=== PATIENT | female | born 1935 | race Caucasian/White ===

== ENCOUNTER 2016-11-26 09:27 | Emergency (ER) | payer MEDICARE ==
[2016-11-26] MEDS ORDERED: Sodium Chloride 0.9% 10 ML Syringe FLUSH PRN (10:21)
--- NOTE | 2016-11-26 10:27 | EDM.PDOC ---
ED HPI GENERAL MEDICAL PROBLEM - General Chief Complaint: Respiratory Problem Stated Complaint: HARD TIME BREATHING Time Seen by Provider: 11/26/16 10:14 Source of Information: Reports: Patient, RN Notes Reviewed History Limitations: Reports: No Limitations - History of Present Illness INITIAL COMMENTS - FREE TEXT/NARRATIVE: 81-year-old female presents emergency department day complaint of shortness of breath, she is a long term resident states his shortness of breath really began this morning she does have cough and sputum production she also admits to being ravioli with noisy respirations denies any chest pain or fevers, does have a significant past medical history of COPD, coronary artery disease and lung CA - Related Data Allergies Allergy/AdvReac Type Severity Reaction Status Date / Time allopurinol Allergy Severe Rash Verified 06/25/16 06:21 Penicillins Allergy Severe Anaphylactic Verified 06/25/16 06:21 Shock fentanyl Allergy Intermediate Cannot Verified 06/25/16 06:21 Remember levofloxacin [From Levaquin] Allergy Unknown Hives Verified 06/25/16 06:21 adhesive Allergy Rash Verified 06/25/16 06:21 lisinopril AdvReac Intermediate Cough Verified 06/25/16 06:21 Home Meds: Home Meds Levothyroxine Sodium [Synthroid] 75 mcg PO DAILY 02/27/13 [History] Acetaminophen [Tylenol] 650 mg PO Q4H PRN 11/21/13 [History] Aspirin [Low Dose Aspirin EC] 81 mg PO DAILY 11/21/13 [History] Ranitidine HCl [Zantac] 150 mg PO BEDTIME 03/07/14 [History] Morphine Sulfate [Morphine Sulfate ER] 30 mg PO TID 06/17/14 [History] Potassium Chloride 20 meq PO TID 06/17/14 [History] Albuterol [Proventil Neb Soln] 2.5 mg NEB QID 11/24/14 [History] Omeprazole 20 mg PO BEDTIME 11/24/14 [History] Sennosides [Senna] 17.2 mg PO BID 12/03/14 [History] Albuterol/Ipratropium [DuoNeb 3.0-0.5 MG/3 ML] 0.5 - 2.5 ml INH Q4H 05/01/15 [ History] Fluticasone/Salmeterol [Advair 250-50] 1 puff INH BID 05/01/15 [History] Furosemide [Lasix] 20 mg PO DAILY 01/09/16 [History] Isosorbide Mononitrate [Imdur] 60 mg PO DAILY 01/09/16 [History] Carvedilol [Carvedilol] 6.25 mg PO BID 11/26/16 [History] Fluticasone/Salmeterol [Advair 250-50 Diskus] 1 each IH BID 11/26/16 [History] Melatonin 3 mg PO BEDTIME 11/26/16 [History] Nystatin [Nystatin] 1 appful TOP BID PRN 11/26/16 [History] Prochlorperazine Maleate [Compazine] 10 mg PO Q6HR PRN 11/26/16 [History] guaiFENesin/Codeine Phosphate [Guaifenesin AC Cough Syrup] 10 ml PO Q4HR PRN 06/14 [History] oxyCODONE [oxyCODONE] 10 mg PO Q4HR PRN 11/26/16 [History] Past Medical History HEENT History: Reports: Cataract Cardiovascular History: Reports: Bypass, CAD, Heart Failure, High Cholesterol, VA, SOB on Exertion Respiratory History: Reports: SOB Gastrointestinal History: Reports: Chronic Constipation, GERD Other Genitourinary History: stage 3 kidney disease COMFORT ADVISOR History: Reports: Musculoskeletal History: Reports: Arthritis, Back Pain, Chronic, Osteoarthritis , Osteoporosis Psychiatric History: Reports: Anxiety, Depression Endocrine/Metabolic History: Reports: Hypothyroidism Hematologic History: Reports: Anemia Oncologic (Cancer) History: Reports: Squamous Cell Carcinoma Other Dermatologic History: i - Infectious Disease History Infectious Disease History: Reports: Chicken Pox, Measles, Mumps - Past Surgical History Cardiovascular Surgical History: Reports: Coronary Artery Bypass Female Surgical History: Reports: Hysterectomy Other Neurological Surgeries/Procedures: kyphoplasty Social & Family History - Tobacco Use Smoking Status *Q: Former Smoker Years of Tobacco use: 50 Used Tobacco, but Quit: Yes Month Tobacco Last Used: november Second Hand Smoke Exposure: No - Caffeine Use Caffeine Use: Reports: Coffee - Alcohol Use Days Per Week of Alcohol Use: 0 - Recreational Drug Use Recreational Drug Use: No ED ROS GENERAL - Review of Systems Review Of Systems: See Below Constitutional: Denies: Fever, Chills HEENT: Reports: No Symptoms Respiratory: Reports: Shortness of Breath Cardiovascular: Reports: Dyspnea on Exertion GI/Abdominal: Reports: No Symptoms : Reports: No Symptoms Musculoskeletal: Reports: No Symptoms Skin: Reports: No Symptoms Neurological: Reports: No Symptoms ED EXAM, GENERAL - Physical Exam Exam: See Below Free Text/Narrative:: General: Elderly female in mild respiratory distress, alert and oriented x3 HEENT: head is atraumatic normocephalic, eyes pupils equal round reactive to light, sclera clear no conjunctivitis appreciated. Ears tympanic membranes clear and zamarripa landmarks and light reflex are present bilaterally canals are clear. Nose no septal deviation, nares are clear, no blood present. Mouth mucosa is dry and pink no erythema or exudate noted in soft palate, tongue is midline uvula is midline, dentition is intact. Neck: Supple no thyromegaly no tracheal deviation. Nodes: Cervical nodes subclavicular nodes nontender no palpable lymphadenopathy noted. Lungs: Coarse respirations with rhonchi mid lower lung momin bilaterally CV: Regular rate and rhythm S1 and S2 appreciated no murmurs rubs or gallops noted. Abdomen: Soft, nontender, no palpable masses or organomegaly appreciated, no distention no guarding bowel sounds are present, . Neuro: Cranial nerves II through XII grossly intact Skin: Warm and dry, intact Extremities: Legs wrapped Jatinder wrap bilaterally Course - Vital Signs Last Recorded V/S: Last Vital Signs Temp 98.4 F 11/26/16 11:23 Pulse 72 11/26/16 12:33 Resp 16 11/26/16 11:23 BP 99/60 11/26/16 11:23 Pulse Ox 97 11/26/16 12:33 - Orders/Labs/Meds Orders: Active Orders 24 hr Category Date Time Status Cardiac Monitoring [RC] .As Directed Care 11/26/16 10:21 Active EKG Documentation Completion [RC] ASDIRECTED Care 11/26/16 10:23 Active Peripheral IV Care [RC] . DIRECTED Care 11/26/16 10:23 Active RT Aerosol Therapy [RC] ASDIRECTED Care 11/26/16 11:28 Active Chest 1V Frontal [CR] Stat Exams 11/26/16 10:23 Taken Lactated Ringers [Ringers, Lactated] 1,000 ml Med 11/26/16 10:30 Active IV .BOLUS Sodium Chloride 0.9% [Saline Flush] Med 11/26/16 10:21 Active 10 ml FLUSH ASDIRECTED PRN Peripheral IV Insertion Adult [OM.PC] Stat Oth 11/26/16 10:21 Ordered EKG 12 Lead [EK] Stat Ther 11/26/16 10:23 Ordered Medication Orders Lactated Ringer's (Ringers, Lactated) 1,000 mls @ 500 mls/hr IV .BOLUS ABHI Last Admin: 11/26/16 11:54 Dose: 500 mls/hr Sodium Chloride (Saline Flush) 10 ml FLUSH ASDIRECTED PRN PRN Reason: Keep Vein Open Labs: Laboratory Tests 11/26/16 11/26/16 11/26/16 Range/Units 10:35 10:35 10:35 WBC 6.4 (4.5-11.0) K/uL RBC 4.37 (3.30-5.50) M/uL Hgb 10.8 L (12.0-15.0) g/dL Hct 34.8 L (36.0-48.0) % MCV 80 (80-98) fL MCH 25 L (27-31) pg MCHC 31 L (32-36) % Plt Count 229 (150-400) K/uL Neut % (Auto) 82 H (36-66) % Lymph % (Auto) 6 L (24-44) % [place] % (Auto) 9 H (2-6) % Eos % (Auto) 3 (2-4) % Baso % (Auto) 1 (0-1) % Sodium 135 L (140-148) mmol/L Potassium 3.6 (3.6-5.2) mmol/L Chloride 97 L (100-108) mmol/L Carbon Dioxide 31 (21-32) mmol/L Anion Gap 10.6 (5.0-14.0) mmol/L BUN 8 (7-18) mg/dL Creatinine 1.0 (0.6-1.0) mg/dL Est Cr Clr Drug Dosing 37.93 mL/min Estimated GFR (MDRD) 53 L (>60) Glucose 115 H (74-106) mg/dL Lactic Acid 0.9 (0.7-2.1) mmol/L Calcium 8.9 (8.5-10.1) mg/dL Total Bilirubin 0.3 (0.2-1.0) mg/dL AST 11 L (15-37) U/L ALT 6 L (12-78) U/L Alkaline Phosphatase 63 (46-116) U/L Creatine Kinase 30 (26-192) U/L CK-MB (CK-2) 1.4 (0-3.6) mg/mL Troponin I < 0.017 (0.000-0.056) ng/mL [id number] Pept 656 H (5-450) pg/mL Total Protein 6.6 (6.4-8.2) g/dL Albumin 2.6 L (3.4-5.0) g/dL Globulin 4.0 H (2.3-3.5) g/dL Albumin/Globulin Ratio 0.7 L (1.2-2.2) Lipase 53 L (73-393) U/L Urine Color Urine Appearance Urine pH (4.5-8.0) Ur Specific [place] (1.008-1.030) Urine Protein (NEGATIVE) mg/dL Urine Glucose (UA) (NEGATIVE) mg/dL Urine Ketones (NEGATIVE) mg/dL Urine Occult Blood (NEGATIVE) Urine Nitrite (NEGATIVE) Urine Bilirubin (NEGATIVE) Urine Urobilinogen (NORMAL) mg/dL Ur Leukocyte Esterase (NEGATIVE) Urine RBC (0-5) Urine WBC (0-5) Ur Epithelial Cells Amorphous Sediment Urine Bacteria Urine Mucus 11/26/16 Range/Units 11:02 WBC (4.5-11.0) K/uL RBC (3.30-5.50) M/uL Hgb (12.0-15.0) g/dL Hct (36.0-48.0) % MCV (80-98) fL MCH (27-31) pg MCHC (32-36) % Plt Count (150-400) K/uL Neut % (Auto) (36-66) % Lymph % (Auto) (24-44) % [place] % (Auto) (2-6) % Eos % (Auto) (2-4) % Baso % (Auto) (0-1) % Sodium (140-148) mmol/L Potassium (3.6-5.2) mmol/L Chloride (100-108) mmol/L Carbon Dioxide (21-32) mmol/L Anion Gap (5.0-14.0) mmol/L BUN (7-18) mg/dL Creatinine (0.6-1.0) mg/dL Est Cr Clr Drug Dosing mL/min Estimated GFR (MDRD) (>60) Glucose (74-106) mg/dL Lactic Acid (0.7-2.1) mmol/L Calcium (8.5-10.1) mg/dL Total Bilirubin (0.2-1.0) mg/dL AST (15-37) U/L ALT (12-78) U/L Alkaline Phosphatase (46-116) U/L Creatine Kinase (26-192) U/L CK-MB (CK-2) (0-3.6) mg/mL Troponin I (0.000-0.056) ng/mL [id number] Pept (5-450) pg/mL Total Protein (6.4-8.2) g/dL Albumin (3.4-5.0) g/dL Globulin (2.3-3.5) g/dL Albumin/Globulin Ratio (1.2-2.2) Lipase (73-393) U/L Urine Color Yellow Urine Appearance Clear Urine pH 7.0 (4.5-8.0) Ur Specific [place] 1.005 L (1.008-1.030) Urine Protein Negative (NEGATIVE) mg/dL Urine Glucose (UA) Normal (NEGATIVE) mg/dL Urine Ketones Negative (NEGATIVE) mg/dL Urine Occult Blood Negative (NEGATIVE) Urine Nitrite Negative (NEGATIVE) Urine Bilirubin Negative (NEGATIVE) Urine Urobilinogen Normal (NORMAL) mg/dL Ur Leukocyte Esterase Negative (NEGATIVE) Urine RBC 0-5 (0-5) Urine WBC 0-5 (0-5) Ur Epithelial Cells Rare Amorphous Sediment Not seen Urine Bacteria Not seen Urine Mucus Not seen Meds: Medications Generic Name Dose Route Start Last Admin Trade Name Freq PRN Reason Stop Dose Admin Lactated Ringer's 1,000 mls @ 500 mls/hr 11/26/16 10:30 11/26/16 11:54 Ringers, Lactated IV 500 mls/hr .BOLUS ABHI Administration Sodium Chloride 10 ml 11/26/16 10:21 Saline Flush FLUSH ASDIRECTED PRN Keep Vein Open Discontinued Medications Generic Name Dose Route Start Last Admin Trade Name Freq PRN Reason Stop Dose Admin Albuterol/Ipratropium 3 ml 11/26/16 11:28 11/26/16 12:30 Duoneb 3.0-0.5 Mg/3 Ml NEB 11/26/16 11:29 3 ml ONETIME ONE Administration Doxycycline Hyclate 100 mg 11/26/16 11:28 11/26/16 12:06 Vibramycin PO 11/26/16 11:29 100 mg ONETIME ONE Administration Departure - Departure Time of Disposition: 13:04 Disposition: DC/[facility]fer to [facility] Condition: Good Clinical Impression: Bronchitis - Discharge Information Forms: ED Department Discharge Additional Instructions: Take full course of antibiotics, continued use your nebulizer treatment as prescribed, Please followup with your primary care provider in 5-7 days if not better, please call return to the emergency department with worsening of symptoms. - My Orders Last 24 Hours: My Active Orders 11/26/16 10:21 Cardiac Monitoring [RC] .As Directed Sodium Chloride 0.9% [Saline Flush] 10 ml FLUSH ASDIRECTED PRN Peripheral IV Insertion Adult [OM.PC] Stat 11/26/16 10:23 EKG Documentation Completion [RC] ASDIRECTED Peripheral IV Care [RC] . DIRECTED Chest 1V Frontal [CR] Stat EKG 12 Lead [EK] Stat 11/26/16 10:30 Lactated Ringers [Ringers, Lactated] 1,000 ml IV .BOLUS 11/26/16 11:28 RT Aerosol Therapy [RC] ASDIRECTED - Assessment/Plan Last 24 Hours: My Active Orders 11/26/16 10:21 Cardiac Monitoring [RC] .As Directed Sodium Chloride 0.9% [Saline Flush] 10 ml FLUSH ASDIRECTED PRN Peripheral IV Insertion Adult [OM.PC] Stat 11/26/16 10:23 EKG Documentation Completion [RC] ASDIRECTED Peripheral IV Care [RC] . DIRECTED Chest 1V Frontal [CR] Stat EKG 12 Lead [EK] Stat 11/26/16 10:30 Lactated Ringers [Ringers, Lactated] 1,000 ml IV .BOLUS 11/26/16 11:28 RT Aerosol Therapy [RC] ASDIRECTED Plan: Assessment Acuity = acute Site and laterality = bronchitis, kidney patient with known history of lung cancer and coronary artery disease Etiology = unclear etiology Manifestations = dyspnea Location of injury = Home Lab values = hemoglobin low at 10.8 consistent normochromic anemia, sodium low at 135 consistent hyponatremia BNP mildly elevated at 656 consistent with mild fluid overload type pattern albumin low at 2.6 consistent hypoalbuminemia urinalysis unremarkable chest x-ray I did review films myself I cannot appreciate any acute process, the official read from radiology is pending, EKG demonstrates sinus rhythm with left bundle branch block similar to EKG in 6:15 Plan I did review lab work EKG and chest x-ray results with her she was given 500 mL of fluid in combination doxycycline and DuoNeb she did have good improvement with that I discussed with her the possibility hospitalization versus outpatient treatment she declined hospitalization would like to try outpatient treatment therefore write prescription for doxycycline 100 mg by mouth twice a day 7 days continue with dual nebs at home reevaluation by primary care in 5-7 days Patient was in agreement with the plan all questions were answered, they were instructed to return to the emergency department or call for worsening symptoms. This note was dictated using [employer] voice recognition software please call with any questions.
[2016-11-26] MEDS ORDERED: Lactated Ringers 1,000 ML IV SCH (10:30)
[2016-11-26 11:24] VITALS: BP 99/60
[2016-11-26] MEDS ORDERED: Doxycycline 100 MG Cap PO ONE (11:28)
[2016-11-26] MEDS ORDERED: Albuterol/Ipratropium 3.0-0.5 MG/3 ML Neb Soln NEB ONE (11:28)
--- NOTE | 2016-11-28 09:16 | CR ---
Heart size upper limits of normal. Interstitial thickening which may be chronic. It is similar. Hazy density within the left lung base could indicate developing pneumonia. Recommend radiographic follo w-up.
== END 2016-11-26 13:48 ==
LOC: JP.ED 09:27
DX: J40 Bronchitis, not specified as acute or chronic (principal); I25.2 Old myocardial infarction; I25.10 Atherosclerotic heart disease of native coronary artery without angina pectoris; I50.9 Heart failure, unspecified; E78.00 Pure hypercholesterolemia, unspecified; K21.9 Gastro-esophageal reflux disease without esophagitis; N18.3 Chronic kidney disease, stage 3 (moderate); F41.9 Anxiety disorder, unspecified; F32.9 Major depressive disorder, single episode, unspecified; E03.9 Hypothyroidism, unspecified; Z85.828 Personal history of other malignant neoplasm of skin; Z95.1 Presence of aortocoronary bypass graft; Z90.710 Acquired absence of both cervix and uterus; Z98.890 Other specified postprocedural states; Z87.891 Personal history of nicotine dependence; Z88.0 Allergy status to penicillin; Z88.1 Allergy status to other antibiotic agents; Z88.8 Allergy status to other drugs, medicaments and biological substances; Z79.82 Long term (current) use of aspirin; Z79.899 Other long term (current) drug therapy
CPT/HCPCS: 36415; 71010; 80053; 81001; 82550; 82553; 83605; 83690; 83880; 84484; 85025; 93005; 94640; 96360; 96361; 99285; A9270; J7120; J7620; 93010; 99283

== ENCOUNTER 2017-01-16 12:13 | Inpatient (IN) | payer MEDICARE, MEDICAID ==
[2017-01-16] MEDS ORDERED: Albuterol 0.083% 2.5 MG/3 ML Neb Soln NEB ONE (12:18)
[2017-01-16] MEDS ORDERED: Furosemide 40 MG/4 ML VIAL IVPUSH ONE (13:09)
[2017-01-16] MEDS ORDERED: Sodium Chloride 0.9% 1,000 ML IV SCH (13:15)
--- NOTE | 2017-01-16 13:34 | EDM.PDOC ---
[id number]: FROM [facility] Time Seen by Provider: 01/16/17 12:20 Source of Information: Reports: Patient, EMS Notes Reviewed, Family, Correction Records History Limitations: Reports: No Limitations - History of Present Illness INITIAL COMMENTS - FREE TEXT/NARRATIVE: pt arrived with gurling resperations. . She had o2 sats in the 70s when the ambulance arrived. She has had several choking episodes and there has been a concern about asperation. She has been in general running lower o2 sats. She does not have a fever. Onset: Gradual Duration: Day(s):, Getting Worse Associated Symptoms: Reports: Shortness of Breath - Related Data Allergies Allergy/AdvReac Type Severity Reaction Status Date / Time allopurinol Allergy Severe Rash Verified 06/25/16 06:21 Penicillins Allergy Severe Anaphylactic Verified 06/25/16 06:21 Shock fentanyl Allergy Intermediate Cannot Verified 06/25/16 06:21 Remember levofloxacin [From Levaquin] Allergy Unknown Hives Verified 06/25/16 06:21 adhesive Allergy Rash Verified 06/25/16 06:21 lisinopril AdvReac Intermediate Cough Verified 06/25/16 06:21 Home Meds: Home Meds Levothyroxine Sodium [Synthroid] 75 mcg PO DAILY 02/27/13 [History] Acetaminophen [Tylenol] 650 mg PO Q4H PRN 11/21/13 [History] Aspirin [Low Dose Aspirin EC] 81 mg PO DAILY 11/21/13 [History] Ranitidine HCl [Zantac] 150 mg PO BEDTIME 03/07/14 [History] Morphine Sulfate [Morphine Sulfate ER] 30 mg PO TID 06/17/14 [History] Potassium Chloride 20 meq PO TID 06/17/14 [History] Albuterol [Proventil Neb Soln] 2.5 mg NEB QID 11/24/14 [History] Omeprazole 20 mg PO BEDTIME 11/24/14 [History] Sennosides [Senna] 17.2 mg PO BID 12/03/14 [History] Albuterol/Ipratropium [DuoNeb 3.0-0.5 MG/3 ML] 0.5 - 2.5 ml INH Q4H 05/01/15 [ History] Fluticasone/Salmeterol [Advair 250-50] 1 puff INH BID 05/01/15 [History] Furosemide [Lasix] 20 mg PO DAILY 01/09/16 [History] Isosorbide Mononitrate [Imdur] 60 mg PO DAILY 01/09/16 [History] Carvedilol [Carvedilol] 6.25 mg PO BID 11/26/16 [History] Fluticasone/Salmeterol [Advair 250-50 Diskus] 1 each IH BID 11/26/16 [History] Melatonin 3 mg PO BEDTIME 11/26/16 [History] Nystatin [Nystatin] 1 appful TOP BID PRN 11/26/16 [History] Prochlorperazine Maleate [Compazine] 10 mg PO Q6HR PRN 11/26/16 [History] guaiFENesin/Codeine Phosphate [Guaifenesin AC Cough Syrup] 10 ml PO Q4HR PRN 06/14 [History] oxyCODONE [oxyCODONE] 10 mg PO Q4HR PRN 11/26/16 [History] Past Medical History HEENT History: Reports: Cataract Cardiovascular History: Reports: Bypass, CAD, Heart Failure, High Cholesterol, NM, SOB on Exertion Respiratory History: Reports: SOB Gastrointestinal History: Reports: Chronic Constipation, GERD Other Genitourinary History: stage 3 kidney disease [employer] History: Reports: Musculoskeletal History: Reports: Arthritis, Back Pain, Chronic, Osteoarthritis , Osteoporosis Psychiatric History: Reports: Anxiety, Depression Endocrine/Metabolic History: Reports: Hypothyroidism Hematologic History: Reports: Anemia Oncologic (Cancer) History: Reports: Squamous Cell Carcinoma Other Dermatologic History: i - Infectious Disease History Infectious Disease History: Reports: Chicken Pox, Measles, Mumps - Past Surgical History Cardiovascular Surgical History: Reports: Coronary Artery Bypass Female Surgical History: Reports: Hysterectomy Other Neurological Surgeries/Procedures: kyphoplasty Social & Family History - Tobacco Use Smoking Status *Q: Former Smoker Years of Tobacco use: 50 Used Tobacco, but Quit: Yes Month Tobacco Last Used: november Second Hand Smoke Exposure: No - Caffeine Use Caffeine Use: Reports: Coffee - Alcohol Use Days Per Week of Alcohol Use: 0 - Recreational Drug Use Recreational Drug Use: No ED ROS GENERAL - Review of Systems Review Of Systems: See Below Constitutional: Reports: Weakness HEENT: Reports: No Symptoms Respiratory: Reports: Shortness of Breath, Cough, Other ( very wet sounding) Cardiovascular: Reports: No Symptoms Endocrine: Reports: No Symptoms GI/Abdominal: Reports: No Symptoms : Reports: No Symptoms Musculoskeletal: Reports: No Symptoms Skin: Reports: No Symptoms Neurological: Reports: No Symptoms ED EXAM, GENERAL - Physical Exam Exam: See Below Free Text/Narrative:: Pt arrived by ambulance with a nonrebreather at 10 liters and she had sats in the mid 80s. Exam Limited By: No Limitations General Appearance: Alert, Anxious, Moderate Distress, Other ( pt had alot of mucous in her throat. ) Ears: Normal TMs Nose: Normal Inspection Throat/Mouth: Normal Inspection Head: Atraumatic Neck: Normal Inspection Respiratory/Chest: Decreased Breath Sounds, Crackles, Rales, Wheezing Cardiovascular: Irregularly Irregular GI/Abdominal: Soft, Non-Tender (Female) Exam: Deferred Rectal (Female) Exam: Deferred Back Exam: Normal Inspection Extremities: Normal Inspection Neurological: Alert, Oriented Course - Vital Signs Last Recorded V/S: Last Vital Signs Temp 36.6 C 01/17/17 05:37 Pulse 60 01/17/17 05:37 Resp 16 01/17/17 05:37 BP 115/42 L 01/17/17 05:37 Pulse Ox 93 L 01/17/17 05:37 - Orders/Labs/Meds Orders: Active Orders 24 hr Category Date Time Status Urinary Catheter Assessment [RC] ASDIRECTED Care 01/16/17 13:23 Inactive CULTURE BLOOD [BC] Urgent Lab 01/16/17 13:40 Received CULTURE BLOOD [BC] Urgent Lab 01/16/17 13:48 Received CULTURE RESPIRATORY + SMEAR [RM] Stat Lab 01/16/17 13:28 Results Blood Culture x2 Reflex Set [OM.PC] Urgent Oth 01/16/17 13:28 Ordered Medication Orders Acetaminophen (Tylenol) 650 mg PO Q4H PRN PRN Reason: Pain (Mild 1-3)/fever Albuterol (Proventil Neb Soln) 2.5 mg NEB Q4H PRN PRN Reason: Shortness Of Breath/wheezing Last Admin: 01/17/17 05:20 Dose: 2.5 mg Albuterol/Ipratropium (Duoneb 3.0-0.5 Mg/3 Ml) 3 ml NEB QIDRT ABHI Last Admin: 01/16/17 21:29 Dose: 3 ml Admin: 01/16/17 15:00 Dose: 3 ml Aspirin (Halfprin) 81 mg PO DAILY [facility] Carvedilol (Coreg) 6.25 mg PO BID [facility] Last Admin: 01/16/17 21:30 Dose: 6.25 mg Docusate Sodium (Colace) 100 mg PO BID PRN PRN Reason: Constipation Enoxaparin Sodium (Lovenox) 40 mg SUBCUT Q24H [facility] Last Admin: 01/16/17 16:23 Dose: 40 mg Furosemide (Lasix) 20 mg PO DAILY [facility] Sodium Chloride (Normal Saline) 1,000 mls @ 125 mls/hr IV ASDIRECTED [facility] Last Admin: 01/16/17 23:48 Dose: 125 mls/hr Doxycycline Hyclate 100 mg/ (Sodium Chloride) 100 mls @ 100 mls/hr IV Q12H [facility] Last Admin: 01/17/17 05:09 Dose: 100 mls/hr Admin: 01/16/17 18:55 Dose: 100 mls/hr Meropenem 500 mg/ Sodium (Chloride) 50 mls @ 100 mls/hr IV Q8H [facility] Last Admin: 01/17/17 01:02 Dose: 100 mls/hr Admin: 01/16/17 18:27 Dose: 100 mls/hr Isosorbide Mononitrate (Imdur) 60 mg PO DAILY [facility] Levothyroxine Sodium (Levothyroxine) 75 mcg PO DAILY@0730 [facility] Magnesium Hydroxide (Milk Of Magnesia) 30 ml PO Q12H PRN PRN Reason: Constipation Methylprednisolone Sodium Succinate (Solu-Medrol) 40 mg IVPUSH Q6H [facility] Last Admin: 01/17/17 03:39 Dose: 40 mg Admin: 01/16/17 21:31 Dose: 40 mg Admin: 01/16/17 16:23 Dose: 40 mg Mometasone Furoate/Formoterol Fumar (Dulera 200-5 Mcg) 1 puff IH BIDRT [facility] Last Admin: 01/16/17 21:30 Dose: 1 inhalation Morphine Sulfate (Ms Contin) 30 mg PO TID [facility] Last Admin: 01/16/17 21:29 Dose: 30 mg Ondansetron HCl (Zofran) 4 mg IV Q4H PRN PRN Reason: Nausea/Vomiting Oxycodone HCl (Oxycodone) 10 mg PO Q4H PRN PRN Reason: Pain Pantoprazole Sodium (Protonix) 40 mg PO BEDTIME [facility] Last Admin: 01/16/17 21:30 Dose: 40 mg Polyethylene Glycol (Miralax) 17 gm PO DAILY PRN PRN Reason: Constipation Potassium Chloride (Klor-Con M20) 20 meq PO TIDMEALS [facility] Last Admin: 01/16/17 16:23 Dose: 20 meq Senna (Senna) 17.2 mg PO BID ABHI Last Admin: 01/16/17 21:30 Dose: 17.2 mg Sodium Chloride (Saline Flush) 10 ml FLUSH ASDIRECTED PRN PRN Reason: Keep Vein Open Labs: Laboratory Tests 01/16/17 01/16/17 01/16/17 Range/Units 12:16 12:16 12:16 WBC 12.8 H (4.5-11.0) K/uL RBC 4.16 (3.30-5.50) M/uL Hgb 9.9 L (12.0-15.0) g/dL Hct 32.5 L (36.0-48.0) % MCV 78 L (80-98) fL MCH 24 L (27-31) pg MCHC 31 L (32-36) % Plt Count 355 (150-400) K/uL Neut % (Auto) 88 H (36-66) % Lymph % (Auto) 4 L (24-44) % Harrison % (Auto) 7 H (2-6) % Eos % (Auto) 1 L (2-4) % Baso % (Auto) 0 (0-1) % Puncture Site ABG pH (7.350-7.450) ABG pCO2 (35.0-42.0) mmHg ABG pO2 (75.0-100.0) mmHg ABG HCO3 (22.0-26.0) mmol/L ABG Total CO2 (21.0-25.0) mmol/L ABG O2 Saturation (95.0-98.0) % ABG O2 Content (15.0-23.0) %vol ABG Base Excess mm/L ABG Hemoglobin (12.0-16.0) g/dL ABG Oxyhemoglobin % ABG Carboxyhemoglobin (0.0-1.6) % ABG Methemoglobin % Ru Test O2 Delivery Device Oxygen Flow Rate L Sodium 138 L (140-148) mmol/L Potassium 3.3 L (3.6-5.2) mmol/L Chloride 97 L (100-108) mmol/L Carbon Dioxide 32 (21-32) mmol/L Anion Gap 9.4 (5.0-14.0) mmol/L BUN 23 H (7-18) mg/dL Creatinine 1.1 H (0.6-1.0) mg/dL Est Cr Clr Drug Dosing 34.31 mL/min Estimated GFR (MDRD) 48 L (>60) Glucose 105 (74-106) mg/dL Lactic Acid (0.4-2.0) mmol/L Calcium 8.8 (8.5-10.1) mg/dL Total Bilirubin 0.4 (0.2-1.0) mg/dL AST 18 (15-37) U/L ALT 14 D (12-78) U/L Alkaline Phosphatase 76 (46-116) U/L Creatine Kinase 15 L (26-192) U/L Troponin I < 0.017 (0.000-0.056) ng/mL Fwb-X-Kniooiwunqi Pept (5-450) pg/mL Total Protein 7.4 (6.4-8.2) g/dL Albumin 2.2 L (3.4-5.0) g/dL Globulin 5.2 H (2.3-3.5) g/dL Albumin/Globulin Ratio 0.4 L (1.2-2.2) TSH, Ultra Sensitive (0.358-3.740) uIU/mL 01/16/17 01/16/17 01/16/17 Range/Units 12:17 12:26 13:22 WBC (4.5-11.0) K/uL RBC (3.30-5.50) M/uL Hgb (12.0-15.0) g/dL Hct (36.0-48.0) % MCV (80-98) fL MCH (27-31) pg MCHC (32-36) % Plt Count (150-400) K/uL Neut % (Auto) (36-66) % Lymph % (Auto) (24-44) % Harrison % (Auto) (2-6) % Eos % (Auto) (2-4) % Baso % (Auto) (0-1) % Puncture Site Rt brachial ABG pH 7.456 H (7.350-7.450) ABG pCO2 43.3 H (35.0-42.0) mmHg ABG pO2 70.2 L (75.0-100.0) mmHg ABG HCO3 30.0 H (22.0-26.0) mmol/L ABG Total CO2 27.6 H (21.0-25.0) mmol/L ABG O2 Saturation 93.8 L (95.0-98.0) % ABG O2 Content 13.0 L (15.0-23.0) %vol ABG Base Excess 5.9 mm/L ABG Hemoglobin 10.1 L (12.0-16.0) g/dL ABG Oxyhemoglobin 91.5 % ABG Carboxyhemoglobin 2.0 H (0.0-1.6) % ABG Methemoglobin 6.0 % Ru Test None O2 Delivery Device Non rebr mask Oxygen Flow Rate 10 L Sodium (140-148) mmol/L Potassium (3.6-5.2) mmol/L Chloride (100-108) mmol/L Carbon Dioxide (21-32) mmol/L Anion Gap (5.0-14.0) mmol/L BUN (7-18) mg/dL Creatinine (0.6-1.0) mg/dL Est Cr Clr Drug Dosing mL/min Estimated GFR (MDRD) (>60) Glucose (74-106) mg/dL Lactic Acid 0.8 (0.4-2.0) mmol/L Calcium (8.5-10.1) mg/dL Total Bilirubin (0.2-1.0) mg/dL AST (15-37) U/L ALT (12-78) U/L Alkaline Phosphatase (46-116) U/L Creatine Kinase (26-192) U/L Troponin I (0.000-0.056) ng/mL Uzi-P-Fztdkfngdoh Pept 2860 H (5-450) pg/mL Total Protein (6.4-8.2) g/dL Albumin (3.4-5.0) g/dL Globulin (2.3-3.5) g/dL Albumin/Globulin Ratio (1.2-2.2) TSH, Ultra Sensitive (0.358-3.740) uIU/mL 01/16/17 Range/Units 13:36 WBC (4.5-11.0) K/uL RBC (3.30-5.50) M/uL Hgb (12.0-15.0) g/dL Hct (36.0-48.0) % MCV (80-98) fL MCH (27-31) pg MCHC (32-36) % Plt Count (150-400) K/uL Neut % (Auto) (36-66) % Lymph % (Auto) (24-44) % Harrison % (Auto) (2-6) % Eos % (Auto) (2-4) % Baso % (Auto) (0-1) % Puncture Site ABG pH (7.350-7.450) ABG pCO2 (35.0-42.0) mmHg ABG pO2 (75.0-100.0) mmHg ABG HCO3 (22.0-26.0) mmol/L ABG Total CO2 (21.0-25.0) mmol/L ABG O2 Saturation (95.0-98.0) % ABG O2 Content (15.0-23.0) %vol ABG Base Excess mm/L ABG Hemoglobin (12.0-16.0) g/dL ABG Oxyhemoglobin % ABG Carboxyhemoglobin (0.0-1.6) % ABG Methemoglobin % Ru Test O2 Delivery Device Oxygen Flow Rate L Sodium (140-148) mmol/L Potassium (3.6-5.2) mmol/L Chloride (100-108) mmol/L Carbon Dioxide (21-32) mmol/L Anion Gap (5.0-14.0) mmol/L BUN (7-18) mg/dL Creatinine (0.6-1.0) mg/dL Est Cr Clr Drug Dosing mL/min Estimated GFR (MDRD) (>60) Glucose (74-106) mg/dL Lactic Acid (0.4-2.0) mmol/L Calcium (8.5-10.1) mg/dL Total Bilirubin (0.2-1.0) mg/dL AST (15-37) U/L ALT (12-78) U/L Alkaline Phosphatase (46-116) U/L Creatine Kinase (26-192) U/L Troponin I (0.000-0.056) ng/mL Dne-Y-Aesnkzdxsky Pept (5-450) pg/mL Total Protein (6.4-8.2) g/dL Albumin (3.4-5.0) g/dL Globulin (2.3-3.5) g/dL Albumin/Globulin Ratio (1.2-2.2) TSH, Ultra Sensitive 0.869 (0.358-3.740) uIU/mL Meds: Medications Generic Name Dose Route Start Last Admin Trade Name Freq PRN Reason Stop Dose Admin Acetaminophen 650 mg 01/16/17 14:45 Tylenol PO Q4H PRN Pain (Mild 1-3)/fever Albuterol 2.5 mg 01/16/17 14:45 01/17/17 05:20 Proventil Neb Soln NEB 2.5 mg Q4H PRN Administration Shortness Of Breath/wheezing Albuterol/Ipratropium 3 ml 01/16/17 15:00 01/16/17 21:29 Duoneb 3.0-0.5 Mg/3 Ml NEB 3 ml QIDRT ABHI Administration Aspirin 81 mg 01/17/17 09:00 Halfprin PO DAILY ABHI Carvedilol 6.25 mg 01/16/17 21:00 01/16/17 21:30 Coreg PO 6.25 mg BID ABHI Administration Docusate Sodium 100 mg 01/16/17 14:45 Colace PO BID PRN Constipation Enoxaparin Sodium 40 mg 01/16/17 16:00 01/16/17 16:23 Lovenox SUBCUT 40 mg Q24H ABHI Administration Furosemide 20 mg 01/17/17 09:00 Lasix PO DAILY ABHI Sodium Chloride 1,000 mls @ 125 mls/hr 01/16/17 14:45 01/16/17 23:48 Normal Saline IV 125 mls/hr ASDIRECTED ABHI Administration Doxycycline Hyclate 100 mg/ 100 mls @ 100 mls/hr 01/16/17 17:00 01/17/17 05: 09 Sodium Chloride IV 100 mls/hr Q12H ABHI Administration Meropenem 500 mg/ Sodium 50 mls @ 100 mls/hr 01/16/17 17:00 01/17/17 01:02 Chloride IV 100 mls/hr Q8H ABHI Administration Isosorbide Mononitrate 60 mg 01/17/17 09:00 Imdur PO DAILY ABHI Levothyroxine Sodium 75 mcg 01/17/17 07:30 Levothyroxine PO DAILY@0730 ABHI Magnesium Hydroxide 30 ml 01/16/17 14:45 Milk Of Magnesia PO Q12H PRN Constipation Methylprednisolone Sodium Succinate 40 mg 01/16/17 16:00 01/17/17 03:39 Solu-Medrol IVPUSH 40 mg Q6H ABHI Administration Mometasone Furoate/Formoterol Fumar 1 puff 01/16/17 21:00 01/16/17 21:30 Dulera 200-5 Mcg IH 1 inhalation BIDRT ABHI Administration Morphine Sulfate 30 mg 01/16/17 21:00 01/16/17 21:29 Ms Contin PO 30 mg TID ABHI Administration Ondansetron HCl 4 mg 01/16/17 14:45 Zofran IV Q4H PRN Nausea/Vomiting Oxycodone HCl 10 mg 01/16/17 15:15 Oxycodone PO Q4H PRN Pain Pantoprazole Sodium 40 mg 01/16/17 21:00 01/16/17 21:30 Protonix PO 40 mg BEDTIME ABHI Administration Polyethylene Glycol 17 gm 01/16/17 14:45 Miralax PO DAILY PRN Constipation Potassium Chloride 20 meq 01/16/17 17:00 01/16/17 16:23 Klor-Con M20 PO 20 meq TIDMEALS ABHI Administration Senna 17.2 mg 01/16/17 21:00 01/16/17 21:30 Senna PO 17.2 mg BID ABHI Administration Sodium Chloride 10 ml 01/16/17 14:45 Saline Flush FLUSH ASDIRECTED PRN Keep Vein Open Discontinued Medications Generic Name Dose Route Start Last Admin Trade Name Freq PRN Reason Stop Dose Admin Albuterol 2.5 mg 01/16/17 12:18 01/16/17 12:37 Proventil Neb Soln NEB 01/16/17 12:19 2.5 mg ONETIME ONE Administration Furosemide 60 mg 01/16/17 13:09 01/16/17 13:26 Lasix IVPUSH 01/16/17 13:10 60 mg ONETIME ONE Administration Sodium Chloride 1,000 mls @ 100 mls/hr 01/16/17 13:15 08/21/17 13:28 Normal Saline IV 100 mls/hr ASDIRECTED ABHI Administration Meropenem 1 gm/ Sodium 100 mls @ 200 mls/hr 01/16/17 17:30 01/16/17 18:25 Chloride IV Not Given Q8H ABHI - Re-Assessments/Exams Free Text/Narrative Re-Assessment/Exam: 01/17/17 07:20 pt arrived with alot of mucous in her throat. She was on a nonrebreather at 10 liyters. She was suctioned out and placed on bipap She improved greatly with her o2. She did remain alert. A sputum for culture was obtained. Blood cultures were obtained. Her chest xray showed a probasble infiltrate at the rt lung base. Departure - Departure Time of Disposition: 05:30 Disposition: Admitted As Inpatient 67 Condition: Fair Clinical Impression: Pneumonia involving right lung, Fluid overload, Aspiration into airway - Discharge Information - My Orders Last 24 Hours: My Active Orders 01/16/17 13:23 Urinary Catheter Assessment [RC] ASDIRECTED 01/16/17 13:28 Blood Culture x2 Reflex Set [OM.PC] Urgent 01/16/17 13:40 CULTURE BLOOD [BC] Urgent 01/16/17 13:48 CULTURE BLOOD [BC] Urgent - Assessment/Plan Last 24 Hours: My Active Orders 01/16/17 13:23 Urinary Catheter Assessment [RC] ASDIRECTED 01/16/17 13:28 Blood Culture x2 Reflex Set [OM.PC] Urgent 01/16/17 13:40 CULTURE BLOOD [BC] Urgent 01/16/17 13:48 CULTURE BLOOD [BC] Urgent
--- NOTE | 2017-01-16 14:24 | CR ---
Chest 1V Frontal INDICATION: sob FINDINGS: Comparison 11/26/2016. Chronic interstitial changes in both lungs. Increased infiltrate in t he right lung base could represent developing pneumonia. Interval improvement of infiltrate in the l eft lung base. Slight blunting of the costophrenic angles, slightly increased. Old traumatic deformi ty of the proximal left humerus. Diffuse osteopenia.
[2017-01-16] MEDS ORDERED: Polyethylene Glycol 3350 Powder 17 GM Packet PO PRN (14:45)
[2017-01-16] MEDS ORDERED: Albuterol 0.083% 2.5 MG/3 ML Neb Soln NEB PRN (14:45)
[2017-01-16] MEDS ORDERED: Ondansetron 4 MG/2 ML SDV IV PRN (14:45)
[2017-01-16] MEDS ORDERED: Acetaminophen 325 MG Tab PO PRN (14:45)
[2017-01-16] MEDS ORDERED: Sodium Chloride 0.9% 10 ML Syringe FLUSH PRN (14:45)
[2017-01-16] MEDS ORDERED: Docusate Sodium 100 MG Cap PO PRN (14:45)
[2017-01-16] MEDS ORDERED: Magnesium Hydroxide 400 MG/5 ML Susp 30 ML Cup PO PRN (14:45)
[2017-01-16] MEDS: Albuterol/Ipratropium 3.0-0.5 MG/3 ML Neb Soln NEB SCH ×2 (15:00→21:29)
[2017-01-16] MEDS: Potassium Chloride 20 MEQ Tab.ER PO SCH (16:23)
[2017-01-16] MEDS: methylPREDNISolone Sodium Succinate 40 MG/1 ML SDV IVPUSH SCH ×2 (16:23→21:31)
[2017-01-16] MEDS: Enoxaparin 40 MG/0.4 ML Syringe SUBCUT SCH (16:23)
--- NOTE | 2017-01-16 17:20 | PCM.HP ---
H&P History of Present Illness - General Date of Service: 01/16/17 Admit Problem/Dx: Admission Diagnosis/Problem Admission Diagnosis/Problem Aspiration pneumonia Source of Information: Patient, Family, Old Records, Provider, RN Notes Reviewed History Limitations: Reports: No Limitations - History of Present Illness Initial Comments - Free Text/Narative: Ms. Tay is an 81-year-old woman who developed acute on chronic respiratory compromise this morning with significant shortness of breath and hypoxia. She has a history of squamous cell carcinoma of the neck and has had difficulty with very poor appetite over the past few weeks as well as progressive weakness. She had been planning on meeting with hospice personnel later today to discuss hospice admission. She has had a few recent episodes of abrupt onset of shortness of breath, today was the worst that she is experienced over the past few weeks. Chest x-ray shows evidence of right lung pneumonia and her white blood cell count is elevated. There is some question as to whether she has been aspirating, there has been some difficulty with swallowing since her neck surgery and radiation. Even though she is been considering hospice she would like IV antibiotic therapy and management of her current respiratory compromise. - Related Data Allergies/Adverse Reactions: Allergies Allergy/AdvReac Type Severity Reaction Status Date / Time allopurinol Allergy Severe Rash Verified 06/25/16 06:21 Penicillins Allergy Severe Anaphylactic Verified 06/25/16 06:21 Shock fentanyl Allergy Intermediate Cannot Verified 06/25/16 06:21 Remember levofloxacin [From Levaquin] Allergy Unknown Hives Verified 06/25/16 06:21 adhesive Allergy Rash Verified 06/25/16 06:21 lisinopril AdvReac Intermediate Cough Verified 06/25/16 06:21 Home Medications: Home Meds Levothyroxine Sodium [Synthroid] 75 mcg PO DAILY 02/27/13 [History] Acetaminophen [Tylenol] 650 mg PO Q4H PRN 11/21/13 [History] Aspirin [Low Dose Aspirin EC] 81 mg PO DAILY 11/21/13 [History] Ranitidine HCl [Zantac] 150 mg PO BEDTIME 03/07/14 [History] Morphine Sulfate [Morphine Sulfate ER] 30 mg PO TID 06/17/14 [History] Potassium Chloride 20 meq PO TID 06/17/14 [History] Albuterol [Proventil Neb Soln] 2.5 mg NEB QID 11/24/14 [History] Omeprazole 20 mg PO BEDTIME 11/24/14 [History] Sennosides [Senna] 17.2 mg PO BID 12/03/14 [History] Albuterol/Ipratropium [DuoNeb 3.0-0.5 MG/3 ML] 0.5 - 2.5 ml INH Q4H 05/01/15 [ History] Fluticasone/Salmeterol [Advair 250-50] 1 puff INH BID 05/01/15 [History] Furosemide [Lasix] 20 mg PO DAILY 01/09/16 [History] Isosorbide Mononitrate [Imdur] 60 mg PO DAILY 01/09/16 [History] Carvedilol [Carvedilol] 6.25 mg PO BID 11/26/16 [History] Fluticasone/Salmeterol [Advair 250-50 Diskus] 1 each IH BID 11/26/16 [History] Melatonin 3 mg PO BEDTIME 11/26/16 [History] Nystatin [Nystatin] 1 appful TOP BID PRN 11/26/16 [History] Prochlorperazine Maleate [Compazine] 10 mg PO Q6HR PRN 11/26/16 [History] guaiFENesin/Codeine Phosphate [Guaifenesin AC Cough Syrup] 10 ml PO Q4HR PRN 06/14 [History] oxyCODONE [oxyCODONE] 10 mg PO Q4HR PRN 11/26/16 [History] Past Medical History HEENT History: Reports: Cataract Cardiovascular History: Reports: Bypass, CAD, Heart Failure, High Cholesterol, MA, SOB on Exertion Respiratory History: Reports: SOB Gastrointestinal History: Reports: Chronic Constipation, GERD Other Genitourinary History: stage 3 kidney disease 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: Musculoskeletal History: Reports: Arthritis, Back Pain, Chronic, Osteoarthritis , Osteoporosis Psychiatric History: Reports: Anxiety, Depression Endocrine/Metabolic History: Reports: Hypothyroidism Hematologic History: Reports: Anemia Oncologic (Cancer) History: Reports: Squamous Cell Carcinoma Other Dermatologic History: i - Infectious Disease History Infectious Disease History: Reports: Chicken Pox, Measles, Mumps - Past Surgical History Cardiovascular Surgical History: Reports: Coronary Artery Bypass Female Surgical History: Reports: Hysterectomy Other Neurological Surgeries/Procedures: kyphoplasty Social & Family History - Tobacco Use Smoking Status *Q: Former Smoker Years of Tobacco use: 50 Used Tobacco, but Quit: Yes Month Tobacco Last Used: november Tobacco Use Comment: smoked all of her life quit 3 years ago Second Hand Smoke Exposure: No - Caffeine Use Caffeine Use: Reports: Coffee - Alcohol Use Days Per Week of Alcohol Use: 0 - Recreational Drug Use Recreational Drug Use: No H&P Review of Systems - Review of Systems: Review Of Systems: See Below General: Reports: Weakness, Decreased Appetite, Weight Loss. Denies: Fever, Chills HEENT: Reports: No Symptoms Pulmonary: Reports: Shortness of Breath, Cough. Denies: Wheezing, Sputum, Hemoptysis Cardiovascular: Reports: Dyspnea on Exertion. Denies: Chest Pain, Palpitations , Orthopnea, PND, Edema, Lightheadedness Gastrointestinal: Reports: Anorexia, Difficulty Swallowing. Denies: Abdominal Pain, Constipation, Diarrhea, Distension Genitourinary: Reports: No Symptoms Musculoskeletal: Reports: No Symptoms Skin: Reports: No Symptoms Psychiatric: Reports: No Symptoms Neurological: Reports: No Symptoms Hematologic/Lymphatic: Reports: No Symptoms Immunologic: Reports: No Symptoms Exam - Exam Exam: See Below - Vital Signs Vital Signs: Last Vital Signs Temp 97.8 F 01/16/17 15:50 Pulse 65 01/16/17 15:50 Resp 18 01/16/17 15:50 BP 108/50 L 01/16/17 15:50 Pulse Ox 92 L 01/16/17 15:50 Weight: 150 lb 12.8 oz - Exam Quality Assessment: Supplemental Oxygen, DVT Prophylaxis General: Alert, Cooperative, Moderate Distress HEENT: Conjunctiva Clear, Mucosa Moist & [place], Normal Nasal Septum, Posterior Pharynx Clear, Pupils Equal Neck: Supple, Trachea Midline, +2 Carotid Pulse wo Bruit Lungs: Decreased Breath Sounds. No: Crackles, Rales, Rhonchi, Wheezing Cardiovascular: Regular Rate, Regular Rhythm, Normal S1, Normal S2. No: Systolic Murmur, Diastolic Murmur GI/Abdominal Exam: Normal Bowel Sounds, Soft, Non-Tender, No Distention Back Exam: Normal Inspection, Full Range of Motion Extremities: Normal Inspection, No Pedal Edema Skin: Warm, Dry, Intact Neurological: Cranial Nerves Intact, Strength Equal Bilateral, Normal Speech, Normal Tone, Sensation Intact. No: Focal Deficit Neuro Extensive - Mental Status: Alert, Oriented x3, Memory Loss-Recent Events - Patient Data Lab Results Last 24 hrs: Laboratory Results - last 24 hr 01/16/17 Range/Units 14:28 Urine Color Yellow Urine Appearance Clear Urine pH 6.0 (4.5-8.0) Ur Specific Only 1.010 (1.008-1.030) Urine Protein Negative (NEGATIVE) mg/dL Urine Glucose (UA) Normal (NEGATIVE) mg/dL Urine Ketones 15 H (NEGATIVE) mg/dL Urine Occult Blood Negative (NEGATIVE) Urine Nitrite Negative (NEGATIVE) Urine Bilirubin Negative (NEGATIVE) Urine Urobilinogen Normal (NORMAL) mg/dL Ur Leukocyte Esterase Negative (NEGATIVE) Urine RBC 0-5 (0-5) Urine WBC 0-5 (0-5) Ur Epithelial Cells Moderate Amorphous Sediment Few Urine Bacteria Rare Urine Mucus Few Result Diagrams: 01/16/17 12:16 01/16/17 12:16 *Q Meaningful Use (ADM) - VTE *Q VTE Criteria *Q: - VTE Risk Assess *Q Each Risk Factor Represents 1 Point: Serious Lung Disease Including Pneumonia, Less than 1 Month, Abnormal Pulmonary Function (COPD) Total Score 1 Point Risk Factors: 2 Each Risk Factor Represents 2 Points: None Total Score 2 Point Risk Factors: 0 Each Risk Factor Represents 3 Points: Age 75 Years or Greater, Present Cancer or Chemotherapy Total Score 3 Point Risk Factors: 6 Each Risk Factor Represents 5 Points: None Total Score 5 Point Risk Factors: 0 Venous Thromboembolism Risk Factor Score *Q: 8 - Stroke *Q Stroke Criteria *Q: - AMI *Q AMI Criteria *Q: Problem List Initiated/Reviewed/Updated: Yes Orders Last 24hrs: Active Orders 24 hr Category Date Time Status Patient Status [ADT] Routine ADT 01/16/17 14:45 Active Intake and Output [RC] Q12H Care 01/16/17 14:45 Active Notify Provider Vital Signs [RC] ASDIRECTED Care 01/16/17 14:45 Active Oxygen Therapy [RC] PRN Care 01/16/17 14:45 Active Peripheral IV Care [RC] Q12H Care 01/16/17 14:45 Active Pulse Oximetry [RC] CONTINUOUS Care 01/16/17 14:45 Active RT Aerosol Therapy [RC] ASDIRECTED Care 01/16/17 14:45 Active Up With Assistance [RC] ASDIRECTED Care 01/16/17 14:45 Active Up to Chair [RC] QID Care 01/16/17 14:45 Active VTE/DVT Education [RC] Per Unit Routine Care 01/16/17 14:45 Active Vital Signs [RC] Q4H Care 01/16/17 14:45 Active PT Evaluation and Treatment [CONS] Routine Cons 01/16/17 14:45 Active Mechanical Soft Diet [DIET] Diet 01/16/17 Lunch Active BASIC METABOLIC PANEL,BMP [CHEM] AM Lab 01/17/17 05:11 Ordered CBC WITH AUTO DIFF [HEME] AM Lab 01/17/17 05:11 Ordered Acetaminophen [Tylenol] Med 01/16/17 14:45 Active 650 mg PO Q4H PRN Albuterol [Proventil Neb Soln] Med 01/16/17 14:45 Active 2.5 mg NEB Q4H PRN Albuterol/Ipratropium [DuoNeb 3.0-0.5 MG/3 ML] Med 01/16/17 15:00 Active 3 ml NEB QIDRT Docusate Sodium [Colace] Med 01/16/17 14:45 Active 100 mg PO BID PRN Enoxaparin [Lovenox] Med 01/16/17 16:00 Active 40 mg SUBCUT Q24H Magnesium Hydroxide [Milk of Magnesia] Med 01/16/17 14:45 Active 30 ml PO Q12H PRN Ondansetron [Zofran] Med 01/16/17 14:45 Active 4 mg IV Q4H PRN Polyethylene Glycol 3350 [MiraLAX] Med 01/16/17 14:45 Active 17 gm PO DAILY PRN Sodium Chloride 0.9% [Normal Saline] 1,000 ml Med 01/16/17 14:45 Active IV ASDIRECTED Sodium Chloride 0.9% [Saline Flush] Med 01/16/17 14:45 Active 10 ml FLUSH ASDIRECTED PRN methylPREDNISolone Sod Succ [Solu-MEDROL] Med 01/16/17 16:00 Active 40 mg IVPUSH Q6H Peripheral IV Insertion Adult [OM.PC] Routine Oth 01/16/17 14:45 Ordered Resuscitation Status Routine Resus Stat 01/16/17 14:16 Ordered Medication Orders Acetaminophen (Tylenol) 650 mg PO Q4H PRN PRN Reason: Pain (Mild 1-3)/fever Albuterol (Proventil Neb Soln) 2.5 mg NEB Q4H PRN PRN Reason: Shortness Of Breath/wheezing Albuterol/Ipratropium (Duoneb 3.0-0.5 Mg/3 Ml) 3 ml NEB QIDRT [facility] Last Admin: 01/16/17 15:00 Dose: 3 ml Aspirin (Halfprin) 81 mg PO DAILY [facility] Carvedilol (Coreg) 6.25 mg PO BID [facility] Docusate Sodium (Colace) 100 mg PO BID PRN PRN Reason: Constipation Enoxaparin Sodium (Lovenox) 40 mg SUBCUT Q24H [facility] Last Admin: 01/16/17 16:23 Dose: 40 mg Furosemide (Lasix) 20 mg PO DAILY [facility] Sodium Chloride (Normal Saline) 1,000 mls @ 125 mls/hr IV ASDIRECTED [facility] Isosorbide Mononitrate (Imdur) 60 mg PO DAILY [facility] Levothyroxine Sodium (Levothyroxine) 75 mcg PO DAILY@0730 [facility] Magnesium Hydroxide (Milk Of Magnesia) 30 ml PO Q12H PRN PRN Reason: Constipation Methylprednisolone Sodium Succinate (Solu-Medrol) 40 mg IVPUSH Q6H [facility] Last Admin: 01/16/17 16:23 Dose: 40 mg Mometasone Furoate/Formoterol Fumar (Dulera 200-5 Mcg) 1 puff IH BIDRT [facility] Morphine Sulfate (Ms Contin) 30 mg PO TID [facility] Ondansetron HCl (Zofran) 4 mg IV Q4H PRN PRN Reason: Nausea/Vomiting Oxycodone HCl (Oxycodone) 10 mg PO Q4H PRN PRN Reason: Pain Pantoprazole Sodium (Protonix) 40 mg PO BEDTIME [facility] Polyethylene Glycol (Miralax) 17 gm PO DAILY PRN PRN Reason: Constipation Potassium Chloride (Klor-Con M20) 20 meq PO TIDMEALS [facility] Last Admin: 01/16/17 16:23 Dose: 20 meq Senna (Senna) 17.2 mg PO BID [facility] Sodium Chloride (Saline Flush) 10 ml FLUSH ASDIRECTED PRN PRN Reason: Keep Vein Open Assessment/Plan Comment:: ASSESSMENT AND PLAN ASPIRATION PNEUMONIA-probable aspiration, history of episodic shortness of breath following eating. Because of this will choose more broad spectrum antibiotics to cover for possibility of aspiration. Chest x-ray shows likely right lung infiltrate. -Blood cultures 2 pending -IV antibiotic therapy with meropenem and doxycycline. HYPOXIC RESPIRATORY FAILURE-secondary to COPD exacerbation and pneumonia -Supplemental oxygen as needed -Noninvasive positive pressure ventilation -Nebulized albuterol and duo nebs -Solu-Medrol 40 mg IV every 6 hours COPD EXACERBATION-secondary to pneumonia with resultant hypoxia -Management as above CONGESTIVE HEART FAILURE WITH PRESERVED LEFT VENTRICULAR FUNCTION-BNP elevated but this is likely chronic, she appears to be well compensated at the present time -Continue outpatient medical management CHRONIC KIDNEY DISEASE STAGE III -Closely monitor urine output and renal function during hospital stay CORONARY ARTERY DISEASE-she denies current symptoms of chest pain or pressure, troponin is within normal range. 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 Has progressively become more weak with very poor appetite and oral intake. She has been interested in pursuing hospice cares and was to have met with a hospice personnel this afternoon before she became acutely short of breath. She would like management of recurrent pneumonia and hypoxia, after this is strongly considering hospice admission. She would like comfort cares in addition to management of pneumonia and respiratory compromise. -Long and short acting pain medication as needed -Lorazepam 0.5 mg every 2 hours as needed for anxiety and/or agitation MAINTENANCE ISSUES -DVT prophylaxis; Lovenox 40 mg subcutaneous daily -GI prophylaxis; continue outpatient PPI therapy -Capps catheter; not indicated -Nutrition; regular diet -Nicotine dependence; not required CODE STATUS-DNR/DNI ADMISSION STATUS-patient will be admitted to inpatient status, expect at least a 2 night hospital stay for evaluation and management of problems as outlined above. At the time of this admission I do not reasonably expected evaluation and management of this problem will require more than a 96 hour hospital stay. DISPOSITION-anticipate discharge back to [facility] PRIMARY CARE PROVIDER-Dr. James
[2017-01-16] MEDS ORDERED: Meropenem 1 GM in Sodium Chloride 0.9% 100 ML IV SCH (17:30)
[2017-01-16] MEDS: Meropenem 500 MG in Sodium Chloride 0.9% 50 ML IV SCH (18:27)
[2017-01-16] MEDS: Doxycycline 100 MG in Sodium Chloride 0.9% 100 ML IV SCH (18:55)
[2017-01-16] MEDS: Morphine 30 MG Tab.ER PO SCH (21:29)
[2017-01-16] MEDS: Carvedilol 6.25 MG Tab PO SCH (21:30)
[2017-01-16] MEDS: Pantoprazole 40 MG Tab.CR PO SCH (21:30)
[2017-01-16] MEDS: Formoterol/Mometasone 200-5 MCG 8.8 GM Inhaler IH SCH (21:30)
[2017-01-16] MEDS: Sennosides 8.6 MG Tab PO SCH (21:30)
[2017-01-16] MEDS: Sodium Chloride 0.9% 1,000 ML IV SCH (23:48)
[2017-01-17] MEDS: Meropenem 500 MG in Sodium Chloride 0.9% 50 ML IV SCH ×3 (01:02→16:13)
[2017-01-17] MEDS: methylPREDNISolone Sodium Succinate 40 MG/1 ML SDV IVPUSH SCH ×3 (03:39→22:30)
[2017-01-17] MEDS: Doxycycline 100 MG in Sodium Chloride 0.9% 100 ML IV SCH ×2 (05:09→16:42)
[2017-01-17] MEDS: Levothyroxine 75 MCG Tab PO SCH (07:25)
[2017-01-17] MEDS: Albuterol/Ipratropium 3.0-0.5 MG/3 ML Neb Soln NEB SCH ×4 (07:31→20:46)
[2017-01-17] MEDS: Formoterol/Mometasone 200-5 MCG 8.8 GM Inhaler IH SCH ×2 (07:32→20:51)
[2017-01-17] MEDS: Potassium Chloride 20 MEQ Tab.ER PO SCH ×3 (08:36→16:12)
[2017-01-17] MEDS: Carvedilol 6.25 MG Tab PO SCH ×2 (08:36→20:45)
[2017-01-17] MEDS: Isosorbide Mononitrate 30 MG Tab.ER PO SCH (08:37)
[2017-01-17] MEDS: Furosemide 20 MG Tab PO SCH (08:37)
[2017-01-17] MEDS: Aspirin 81 MG Tab.EC PO SCH (08:37)
[2017-01-17] MEDS: Sennosides 8.6 MG Tab PO SCH ×2 (08:38→20:46)
[2017-01-17] MEDS: Morphine 30 MG Tab.ER PO SCH ×4 (08:41→22:30)
[2017-01-17] MEDS: Sodium Chloride 0.9% 1,000 ML IV SCH (10:07)
[2017-01-17] MEDS ORDERED: Potassium Chloride 20 MEQ Tab.ER PO ONE ×2 (10:30→16:00)
--- NOTE | 2017-01-17 12:27 | PCM.PN ---
- General Info Date of Service: 01/17/17 Functional Status: Reports: Pain Controlled - Review of Systems General: Reports: Weakness. Denies: Fever, Chills Pulmonary: Reports: Shortness of Breath. Denies: Cough, Sputum, Hemoptysis, Wheezing Cardiovascular: Reports: Dyspnea on Exertion. Denies: Chest Pain, Palpitations , Orthopnea, PND Gastrointestinal: Reports: No Symptoms Psychiatric: Reports: Confusion Systems Review Comment:: Ms. Tay has improved since admission, for the most part respiratory status has been better than admission although she did have an episode of hypoxia this morning. Has used BiPAP intermittently but not much over the past several hours. We discussed her wishes for ongoing care and management today. She is definitely interested in hospice and would like to proceed with a comfort care only approach. - Patient Data Vitals - Most Recent: Last Vital Signs Temp 98.4 F 01/17/17 11:47 Pulse 74 01/17/17 11:47 Resp 27 H 01/17/17 11:47 BP 117/53 L 01/17/17 11:47 Pulse Ox 92 L 01/17/17 11:47 Weight - Most Recent: 150 lb 12.809 oz I&O - Last 24 Hours: Intake & Output 01/16/17 01/17/17 01/17/17 22:59 06:59 14:59 Intake Total 240 1734 Output Total 1100 350 Balance -860 1384 Lab Results Last 24 Hours: Laboratory Results - last 24 hr 01/16/17 01/17/17 01/17/17 Range/Units 14:28 04:15 04:15 WBC 7.9 (4.5-11.0) K/uL RBC 3.63 (3.30-5.50) M/uL Hgb 8.5 L (12.0-15.0) g/dL Hct 28.5 L (36.0-48.0) % MCV 79 L (80-98) fL MCH 23 L (27-31) pg MCHC 30 L (32-36) % Plt Count 294 (150-400) K/uL Neut % (Auto) 94 H (36-66) % Lymph % (Auto) 5 L (24-44) % [place] % (Auto) 1 L (2-6) % Eos % (Auto) 0 L (2-4) % Baso % (Auto) 0 (0-1) % Sodium 138 L (140-148) mmol/L Potassium 3.2 L (3.6-5.2) mmol/L Chloride 99 L (100-108) mmol/L Carbon Dioxide 33 H (21-32) mmol/L Anion Gap 9.2 (5.0-14.0) mmol/L BUN 22 H (7-18) mg/dL Creatinine 1.1 H (0.6-1.0) mg/dL Est Cr Clr Drug Dosing 32.26 mL/min Estimated GFR (MDRD) 48 L (>60) Glucose 130 H (74-106) mg/dL Calcium 7.9 L (8.5-10.1) mg/dL Urine Color Yellow Urine Appearance Clear Urine pH 6.0 (4.5-8.0) Ur Specific [place] 1.010 (1.008-1.030) Urine Protein Negative (NEGATIVE) mg/dL Urine Glucose (UA) Normal (NEGATIVE) mg/dL Urine Ketones 15 H (NEGATIVE) mg/dL Urine Occult Blood Negative (NEGATIVE) Urine Nitrite Negative (NEGATIVE) Urine Bilirubin Negative (NEGATIVE) Urine Urobilinogen Normal (NORMAL) mg/dL Ur Leukocyte Esterase Negative (NEGATIVE) Urine RBC 0-5 (0-5) Urine WBC 0-5 (0-5) Ur Epithelial Cells Moderate Amorphous Sediment Few Urine Bacteria Rare Urine Mucus Few Med Orders - Current: Current Medications Acetaminophen (Tylenol) 650 mg PO Q4H PRN PRN Reason: Pain (Mild 1-3)/fever Albuterol (Proventil Neb Soln) 2.5 mg NEB Q4H PRN PRN Reason: Shortness Of Breath/wheezing Last Admin: 01/17/17 05:20 Dose: 2.5 mg Albuterol/Ipratropium (Duoneb 3.0-0.5 Mg/3 Ml) 3 ml NEB QIDRT [facility] Last Admin: 01/17/17 10:39 Dose: 3 ml Aspirin (Halfprin) 81 mg PO DAILY [facility] Last Admin: 01/17/17 08:37 Dose: 81 mg Carvedilol (Coreg) 6.25 mg PO BID [facility] Last Admin: 01/17/17 08:36 Dose: 6.25 mg Docusate Sodium (Colace) 100 mg PO BID PRN PRN Reason: Constipation Enoxaparin Sodium (Lovenox) 40 mg SUBCUT Q24H [facility] Last Admin: 01/16/17 16:23 Dose: 40 mg Furosemide (Lasix) 20 mg PO DAILY [facility] Last Admin: 01/17/17 08:37 Dose: 20 mg Doxycycline Hyclate 100 mg/ (Sodium Chloride) 100 mls @ 100 mls/hr IV Q12H [facility] Last Admin: 01/17/17 05:09 Dose: 100 mls/hr Meropenem 500 mg/ Sodium (Chloride) 50 mls @ 100 mls/hr IV Q8H [facility] Last Admin: 01/17/17 08:41 Dose: 100 mls/hr Isosorbide Mononitrate (Imdur) 60 mg PO DAILY [facility] Last Admin: 01/17/17 08:37 Dose: 60 mg Levothyroxine Sodium (Levothyroxine) 75 mcg PO DAILY@0730 [facility] Last Admin: 01/17/17 07:25 Dose: 75 mcg Magnesium Hydroxide (Milk Of Magnesia) 30 ml PO Q12H PRN PRN Reason: Constipation Methylprednisolone Sodium Succinate (Solu-Medrol) 40 mg IVPUSH Q12H [facility] Mometasone Furoate/Formoterol Fumar (Dulera 200-5 Mcg) 1 puff IH BIDRT [facility] Last Admin: 01/17/17 07:32 Dose: 1 puff Morphine Sulfate (Ms Contin) 30 mg PO TID [facility] Last Admin: 01/17/17 08:41 Dose: 30 mg Ondansetron HCl (Zofran) 4 mg IV Q4H PRN PRN Reason: Nausea/Vomiting Oxycodone HCl (Oxycodone) 10 mg PO Q4H PRN PRN Reason: Pain Pantoprazole Sodium (Protonix) 40 mg PO BEDTIME [facility] Last Admin: 01/16/17 21:30 Dose: 40 mg Polyethylene Glycol (Miralax) 17 gm PO DAILY PRN PRN Reason: Constipation Potassium Chloride (Klor-Con M20) 20 meq PO TIDMEALS [facility] Last Admin: 01/17/17 11:27 Dose: 20 meq Potassium Chloride (Klor-Con M20) 40 meq PO ONETIME ONE Stop: 01/17/17 16:01 Senna (Senna) 17.2 mg PO BID [facility] Last Admin: 01/17/17 08:38 Dose: 17.2 mg Sodium Chloride (Saline Flush) 10 ml FLUSH ASDIRECTED PRN PRN Reason: Keep Vein Open Discontinued Medications Albuterol (Proventil Neb Soln) 2.5 mg NEB ONETIME ONE Stop: 01/16/17 12:19 Last Admin: 01/16/17 12:37 Dose: 2.5 mg Furosemide (Lasix) 60 mg IVPUSH ONETIME ONE Stop: 01/16/17 13:10 Last Admin: 01/16/17 13:26 Dose: 60 mg Sodium Chloride (Normal Saline) 1,000 mls @ 100 mls/hr IV ASDIRECTED [facility] Last Admin: 01/16/17 13:28 Dose: 100 mls/hr Sodium Chloride (Normal Saline) 1,000 mls @ 125 mls/hr IV ASDIRECTED [facility] Last Admin: 01/17/17 10:07 Dose: 125 mls/hr Meropenem 1 gm/ Sodium (Chloride) 100 mls @ 200 mls/hr IV Q8H [facility] Last Admin: 01/16/17 18:25 Dose: Not Given Methylprednisolone Sodium Succinate (Solu-Medrol) 40 mg IVPUSH Q6H [facility] Last Admin: 01/17/17 10:08 Dose: 40 mg Potassium Chloride (Klor-Con M20) 40 meq PO ONETIME ONE Stop: 01/17/17 10:31 Last Admin: 01/17/17 11:27 Dose: 40 meq - Exam Quality Assessment: Supplemental Oxygen, DVT Prophylaxis General: Alert, Cooperative, Mild Distress Lungs: Decreased Breath Sounds, Wheezing. No: Crackles, Rales, Rhonchi Cardiovascular: Regular Rate, Regular Rhythm, No Murmurs GI/Abdominal Exam: Normal Bowel Sounds, Soft, Non-Tender, No Distention Extremities: Normal Inspection, No Pedal Edema Skin: Warm, Dry, Intact - Problem List Review Problem List Initiated/Reviewed/Updated: Yes - My Orders Last 24 Hours: My Active Orders 01/16/17 14:16 Resuscitation Status Routine 01/16/17 14:45 Patient Status [ADT] Routine Intake and Output [RC] Q12H Notify Provider Vital Signs [RC] ASDIRECTED Oxygen Therapy [RC] PRN Peripheral IV Care [RC] Q12H Pulse Oximetry [RC] CONTINUOUS RT Aerosol Therapy [RC] ASDIRECTED Up With Assistance [RC] ASDIRECTED Up to Chair [RC] QID VTE/DVT Education [RC] Per Unit Routine Vital Signs [RC] Q2H PT Evaluation and Treatment [CONS] Routine Acetaminophen [Tylenol] 650 mg PO Q4H PRN Albuterol [Proventil Neb Soln] 2.5 mg NEB Q4H PRN Docusate Sodium [Colace] 100 mg PO BID PRN Magnesium Hydroxide [Milk of Magnesia] 30 ml PO Q12H PRN Ondansetron [Zofran] 4 mg IV Q4H PRN Polyethylene Glycol 3350 [MiraLAX] 17 gm PO DAILY PRN Sodium Chloride 0.9% [Saline Flush] 10 ml FLUSH ASDIRECTED PRN Peripheral IV Insertion Adult [OM.PC] Routine 01/16/17 15:00 Albuterol/Ipratropium [DuoNeb 3.0-0.5 MG/3 ML] 3 ml NEB QIDRT 01/16/17 16:00 Enoxaparin [Lovenox] 40 mg SUBCUT Q24H 01/16/17 17:00 Doxycycline [Vibramycin] 100 mg Sodium Chloride 0.9% [Normal Saline] 100 ml IV Q12H Meropenem [Merrem] 500 mg Sodium Chloride 0.9% [Normal Saline] 50 ml IV Q8H 01/16/17 Lunch Mechanical Soft Diet [DIET] 01/17/17 10:21 Convert IV to Saline Lock [OM.PC] Routine 01/17/17 12:30 methylPREDNISolone Sod Succ [Solu-MEDROL] 40 mg IVPUSH Q12H 01/17/17 16:00 Potassium Chloride [Klor-Con M20] 40 meq PO ONETIME ONE 01/18/17 05:00 BASIC METABOLIC PANEL,BMP [CHEM] Timed CBC WITH AUTO DIFF [HEME] Timed MAGNESIUM [CHEM] Timed - Plan Plan:: ASSESSMENT AND PLAN ASPIRATION PNEUMONIA-probable aspiration, history of episodic shortness of breath following eating. Because of this will choose more broad spectrum antibiotics to cover for possibility of aspiration. Chest x-ray shows likely right lung infiltrate. She has been relatively stable from a respiratory standpoint since admission and has remained afebrile -Blood cultures 2 pending -IV antibiotic therapy with meropenem and doxycycline. HYPOXIC RESPIRATORY FAILURE-secondary to COPD exacerbation and pneumonia -Supplemental oxygen as needed -Noninvasive positive pressure ventilation as needed -Nebulized albuterol and duo nebs -Solu-Medrol 40 mg IV every 12 hours COPD EXACERBATION-secondary to pneumonia with resultant hypoxia -Management as above CONGESTIVE HEART FAILURE WITH PRESERVED LEFT VENTRICULAR FUNCTION-BNP elevated but this is likely chronic, she appears to be well compensated at the present time -Continue outpatient medical management CHRONIC KIDNEY DISEASE STAGE III -Closely monitor urine output and renal function during hospital stay CORONARY ARTERY DISEASE-she denies current symptoms of chest pain or pressure, troponin is within normal range. 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 Has progressively become more weak with very poor appetite and oral intake. She has been interested in pursuing hospice cares and was to have met with a hospice personnel this afternoon before she became acutely short of breath. She would like management of recurrent pneumonia and hypoxia, after this is strongly considering hospice admission. She would like comfort cares in addition to management of pneumonia and respiratory compromise. -Long and short acting pain medication as needed -Lorazepam 0.5 mg every 2 hours as needed for anxiety and/or agitation -Hospice consult prior to discharge MAINTENANCE ISSUES -DVT prophylaxis; Lovenox 40 mg subcutaneous daily -GI prophylaxis; continue outpatient PPI therapy -Capps catheter; not indicated -Nutrition; regular diet -Nicotine dependence; not required CODE STATUS-DNR/DNI ADMISSION STATUS-patient will be admitted to inpatient status, expect at least a 2 night hospital stay for evaluation and management of problems as outlined above. At the time of this admission I do not reasonably expected evaluation and management of this problem will require more than a 96 hour hospital stay. DISPOSITION-anticipate discharge back to long term, with hospice admission PRIMARY CARE PROVIDER-Dr. James
[2017-01-17] MEDS: Enoxaparin 40 MG/0.4 ML Syringe SUBCUT SCH (16:13)
[2017-01-17] MEDS: Pantoprazole 40 MG Tab.CR PO SCH (20:46)
[2017-01-18] MEDS: Meropenem 500 MG in Sodium Chloride 0.9% 50 ML IV SCH ×3 (01:10→16:26)
[2017-01-18] MEDS: oxyCODONE 5 MG Tab PO PRN ×2 (03:35→19:25)
[2017-01-18] MEDS: Doxycycline 100 MG in Sodium Chloride 0.9% 100 ML IV SCH ×2 (04:45→17:48)
[2017-01-18] MEDS: Morphine 30 MG Tab.ER PO SCH ×3 (06:33→21:30)
[2017-01-18] MEDS: Formoterol/Mometasone 200-5 MCG 8.8 GM Inhaler IH SCH ×2 (07:12→21:31)
[2017-01-18] MEDS: Albuterol/Ipratropium 3.0-0.5 MG/3 ML Neb Soln NEB SCH ×4 (07:12→21:14)
[2017-01-18] MEDS: Potassium Chloride 20 MEQ Tab.ER PO SCH ×3 (08:17→17:48)
[2017-01-18] MEDS: Furosemide 20 MG Tab PO SCH (08:17)
[2017-01-18] MEDS: Sennosides 8.6 MG Tab PO SCH ×2 (08:17→21:30)
[2017-01-18] MEDS: Aspirin 81 MG Tab.EC PO SCH (08:17)
[2017-01-18] MEDS: Levothyroxine 75 MCG Tab PO SCH (08:17)
[2017-01-18] MEDS: Carvedilol 6.25 MG Tab PO SCH ×2 (08:18→21:30)
[2017-01-18] MEDS: Isosorbide Mononitrate 30 MG Tab.ER PO SCH (08:18)
[2017-01-18] MEDS: Magnesium Sulfate/Water 2 GM in Premix Bag 1 BAG IV SCH ×3 (09:49→21:34)
[2017-01-18] MEDS: methylPREDNISolone Sodium Succinate 40 MG/1 ML SDV IVPUSH SCH (09:49)
--- NOTE | 2017-01-18 10:07 | PCM.PN ---
- General Info Date of Service: 01/18/17 Functional Status: Reports: Pain Controlled, Tolerating Diet - Review of Systems General: Reports: Weakness. Denies: Fever, Chills Pulmonary: Reports: Shortness of Breath, Cough. Denies: Pleuritic Chest Pain, Sputum, Hemoptysis, Wheezing Cardiovascular: Reports: Dyspnea on Exertion. Denies: Chest Pain, Palpitations , Orthopnea, PND Gastrointestinal: Reports: No Symptoms Systems Review Comment:: Ms. Tay has been stable over the past 24 hours, continues to experience hypoxia with activity and requires increased supplemental oxygen. Vital signs have been stable and she has remained afebrile. She continues to want to proceed with comfort cares only and hospice admission. Hospice staff will be meeting with the patient and her family later today. - Patient Data Vitals - Most Recent: Last Vital Signs Temp 98.6 F 01/18/17 08:00 Pulse 65 01/18/17 08:18 Resp 22 H 01/18/17 08:00 BP 102/44 L 01/18/17 08:18 Pulse Ox 93 L 01/18/17 08:00 Weight - Most Recent: 159 lb I&O - Last 24 Hours: Intake & Output 01/17/17 01/18/17 01/18/17 22:59 06:59 14:59 Intake Total 100 1050 Output Total 675 225 Balance -575 825 Lab Results Last 24 Hours: Laboratory Results - last 24 hr 01/18/17 01/18/17 Range/Units 05:39 05:39 WBC 15.2 H (4.5-11.0) K/uL RBC 4.15 (3.30-5.50) M/uL Hgb 10.0 L (12.0-15.0) g/dL Hct 32.1 L (36.0-48.0) % MCV 77 L (80-98) fL MCH 24 L (27-31) pg MCHC 31 L (32-36) % Plt Count 329 (150-400) K/uL Neut % (Auto) 93 H (36-66) % Lymph % (Auto) 3 L (24-44) % [place] % (Auto) 3 (2-6) % Eos % (Auto) 0 L (2-4) % Baso % (Auto) 0 (0-1) % Sodium 136 L (140-148) mmol/L Potassium 4.6 (3.6-5.2) mmol/L Chloride 102 (100-108) mmol/L Carbon Dioxide 31 (21-32) mmol/L Anion Gap 7.6 (5.0-14.0) mmol/L BUN 23 H (7-18) mg/dL Creatinine 1.0 (0.6-1.0) mg/dL Est Cr Clr Drug Dosing 35.49 mL/min Estimated GFR (MDRD) 53 L (>60) Glucose 140 H (74-106) mg/dL Calcium 8.8 (8.5-10.1) mg/dL Magnesium 1.1 L D (1.8-2.4) mg/dL Med Orders - Current: Current Medications Acetaminophen (Tylenol) 650 mg PO Q4H PRN PRN Reason: Pain (Mild 1-3)/fever Last Admin: 01/18/17 03:35 Dose: 650 mg Albuterol (Proventil Neb Soln) 2.5 mg NEB Q4H PRN PRN Reason: Shortness Of Breath/wheezing Last Admin: 01/17/17 05:20 Dose: 2.5 mg Albuterol/Ipratropium (Duoneb 3.0-0.5 Mg/3 Ml) 3 ml NEB QIDRT [facility] Last Admin: 01/18/17 07:12 Dose: 3 ml Aspirin (Halfprin) 81 mg PO DAILY [facility] Last Admin: 01/18/17 08:17 Dose: 81 mg Carvedilol (Coreg) 6.25 mg PO BID [facility] Last Admin: 01/18/17 08:18 Dose: 6.25 mg Docusate Sodium (Colace) 100 mg PO BID PRN PRN Reason: Constipation Enoxaparin Sodium (Lovenox) 40 mg SUBCUT Q24H [facility] Last Admin: 01/17/17 16:13 Dose: 40 mg Furosemide (Lasix) 20 mg PO DAILY [facility] Last Admin: 01/18/17 08:17 Dose: 20 mg Doxycycline Hyclate 100 mg/ (Sodium Chloride) 100 mls @ 100 mls/hr IV Q12H [facility] Last Admin: 01/18/17 04:45 Dose: 100 mls/hr Meropenem 500 mg/ Sodium (Chloride) 50 mls @ 100 mls/hr IV Q8H [facility] Last Admin: 01/18/17 08:37 Dose: 100 mls/hr Magnesium Sulfate 2 gm/ Premix 50 mls @ 25 mls/hr IV Q6H [facility] Stop: 01/19/17 05:59 Last Admin: 01/18/17 09:49 Dose: 25 mls/hr Isosorbide Mononitrate (Imdur) 60 mg PO DAILY [facility] Last Admin: 01/18/17 08:18 Dose: 60 mg Levothyroxine Sodium (Levothyroxine) 75 mcg PO DAILY@0730 [facility] Last Admin: 01/18/17 08:17 Dose: 75 mcg Magnesium Hydroxide (Milk Of Magnesia) 30 ml PO Q12H PRN PRN Reason: Constipation Magnesium Oxide (Magnesium Oxide) 400 mg PO BID [facility] Mometasone Furoate/Formoterol Fumar (Dulera 200-5 Mcg) 1 puff IH BIDRT [facility] Last Admin: 01/18/17 07:12 Dose: 1 puff Morphine Sulfate (Ms Contin) 30 mg PO Q8H [facility] Last Admin: 01/18/17 06:33 Dose: 30 mg Ondansetron HCl (Zofran) 4 mg IV Q4H PRN PRN Reason: Nausea/Vomiting Oxycodone HCl (Oxycodone) 10 mg PO Q4H PRN PRN Reason: Pain Last Admin: 01/18/17 03:35 Dose: 10 mg Pantoprazole Sodium (Protonix) 40 mg PO BEDTIME [facility] Last Admin: 01/17/17 20:46 Dose: 40 mg Polyethylene Glycol (Miralax) 17 gm PO DAILY PRN PRN Reason: Constipation Potassium Chloride (Klor-Con M20) 20 meq PO TIDMEALS [facility] Last Admin: 01/18/17 08:17 Dose: 20 meq Senna (Senna) 17.2 mg PO BID [facility] Last Admin: 01/18/17 08:17 Dose: 17.2 mg Sodium Chloride (Saline Flush) 10 ml FLUSH ASDIRECTED PRN PRN Reason: Keep Vein Open Discontinued Medications Albuterol (Proventil Neb Soln) 2.5 mg NEB ONETIME ONE Stop: 01/16/17 12:19 Last Admin: 01/16/17 12:37 Dose: 2.5 mg Furosemide (Lasix) 60 mg IVPUSH ONETIME ONE Stop: 01/16/17 13:10 Last Admin: 01/16/17 13:26 Dose: 60 mg Sodium Chloride (Normal Saline) 1,000 mls @ 100 mls/hr IV ASDIRECTED [facility] Last Admin: 01/16/17 13:28 Dose: 100 mls/hr Sodium Chloride (Normal Saline) 1,000 mls @ 125 mls/hr IV ASDIRECTED [facility] Last Admin: 01/17/17 10:07 Dose: 125 mls/hr Meropenem 1 gm/ Sodium (Chloride) 100 mls @ 200 mls/hr IV Q8H [facility] Last Admin: 01/16/17 18:25 Dose: Not Given Methylprednisolone Sodium Succinate (Solu-Medrol) 40 mg IVPUSH Q6H [facility] Last Admin: 01/17/17 10:08 Dose: 40 mg Methylprednisolone Sodium Succinate (Solu-Medrol) 40 mg IVPUSH Q12H [facility] Last Admin: 01/18/17 09:49 Dose: 40 mg Morphine Sulfate (Ms Contin) 30 mg PO TID [facility] Last Admin: 01/17/17 08:41 Dose: 30 mg Potassium Chloride (Klor-Con M20) 40 meq PO ONETIME ONE Stop: 01/17/17 10:31 Last Admin: 01/17/17 11:27 Dose: 40 meq Potassium Chloride (Klor-Con M20) 40 meq PO ONETIME ONE Stop: 01/17/17 16:01 Last Admin: 01/17/17 16:12 Dose: 40 meq - Exam Quality Assessment: Supplemental Oxygen, DVT Prophylaxis General: Alert, Oriented, Cooperative, Mild Distress Lungs: Decreased Breath Sounds, Wheezing. No: Crackles, Rales, Rhonchi Cardiovascular: Regular Rate, Regular Rhythm, No Murmurs GI/Abdominal Exam: Normal Bowel Sounds, Soft, Non-Tender, No Distention Extremities: Normal Inspection, Non-Tender Skin: Warm, Dry, Intact - Problem List Review Problem List Initiated/Reviewed/Updated: Yes - My Orders Last 24 Hours: My Active Orders 01/17/17 10:21 Convert IV to Saline Lock [OM.PC] Routine 01/17/17 14:00 Morphine [MS Contin] 30 mg PO Q8H 01/18/17 10:00 Magnesium Oxide 400 mg PO BID Magnesium Sulfate/Water [Magnesium Sulfate 2 GM in Water 50 ML] 2 gm Premix Bag 1 bag IV Q6H 01/18/17 10:03 Vital Signs [RC] Q4H 01/19/17 05:00 BASIC METABOLIC PANEL,BMP [CHEM] Timed CBC WITH AUTO DIFF [HEME] Timed MAGNESIUM [CHEM] Timed - Plan Plan:: ASSESSMENT AND PLAN ASPIRATION PNEUMONIA-symptomatically improved but continues to experience hypoxia, likely secondary to underlying COPD as well as current pneumonia -Blood cultures 2 pending -IV antibiotic therapy with meropenem and doxycycline. HYPOXIC RESPIRATORY FAILURE-secondary to COPD exacerbation and pneumonia -Supplemental oxygen as needed -Noninvasive positive pressure ventilation as needed -Nebulized albuterol and duo nebs -Discontinue Solu-Medrol COPD EXACERBATION-secondary to pneumonia with resultant hypoxia -Management as above CONGESTIVE HEART FAILURE WITH PRESERVED LEFT VENTRICULAR FUNCTION-BNP elevated but this is likely chronic, she appears to be well compensated at the present time -Continue outpatient medical management CHRONIC KIDNEY DISEASE STAGE III -Closely monitor urine output and renal function during hospital stay CORONARY ARTERY DISEASE-she denies current symptoms of chest pain or pressure, troponin is within normal range. 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 Has progressively become more weak with very poor appetite and oral intake. She has been interested in pursuing hospice cares and was to have met with a hospice personnel this afternoon before she became acutely short of breath. She would like management of recurrent pneumonia and hypoxia, after this is strongly considering hospice admission. She would like comfort cares in addition to management of pneumonia and respiratory compromise. -Long and short acting pain medication as needed -Lorazepam 0.5 mg every 2 hours as needed for anxiety and/or agitation -Hospice consult today MAINTENANCE ISSUES -DVT prophylaxis; Lovenox 40 mg subcutaneous daily -GI prophylaxis; continue outpatient PPI therapy -Capps catheter; not indicated -Nutrition; regular diet -Nicotine dependence; not required CODE STATUS-DNR/DNI ADMISSION STATUS-patient will be admitted to inpatient status, expect at least a 2 night hospital stay for evaluation and management of problems as outlined above. At the time of this admission I do not reasonably expected evaluation and management of this problem will require more than a 96 hour hospital stay. DISPOSITION-anticipate discharge back to detention, with hospice admission PRIMARY CARE PROVIDER-Dr. James
[2017-01-18] MEDS: Magnesium Oxide 400 MG Tab PO SCH ×2 (12:01→21:30)
[2017-01-18] MEDS: Enoxaparin 40 MG/0.4 ML Syringe SUBCUT SCH (15:04)
[2017-01-18] MEDS: Pantoprazole 40 MG Tab.CR PO SCH (21:31)
[2017-01-19] MEDS: Meropenem 500 MG in Sodium Chloride 0.9% 50 ML IV SCH ×3 (00:25→16:34)
[2017-01-19] MEDS: Morphine 30 MG Tab.ER PO SCH ×3 (03:07→16:31)
[2017-01-19] MEDS: Magnesium Sulfate/Water 2 GM in Premix Bag 1 BAG IV SCH (04:00)
[2017-01-19] MEDS: Doxycycline 100 MG in Sodium Chloride 0.9% 100 ML IV SCH ×2 (05:00→16:34)
[2017-01-19] MEDS: Formoterol/Mometasone 200-5 MCG 8.8 GM Inhaler IH SCH (07:00)
[2017-01-19] MEDS: Albuterol/Ipratropium 3.0-0.5 MG/3 ML Neb Soln NEB SCH ×4 (07:00→14:58)
[2017-01-19] MEDS: Levothyroxine 75 MCG Tab PO SCH (07:30)
[2017-01-19] MEDS: Potassium Chloride 20 MEQ Tab.ER PO SCH ×3 (08:00→16:34)
[2017-01-19] MEDS: Sennosides 8.6 MG Tab PO SCH (09:05)
[2017-01-19] MEDS: Isosorbide Mononitrate 30 MG Tab.ER PO SCH (09:07)
[2017-01-19] MEDS: Carvedilol 6.25 MG Tab PO SCH (09:07)
[2017-01-19] MEDS: Magnesium Oxide 400 MG Tab PO SCH (09:07)
[2017-01-19] MEDS: Aspirin 81 MG Tab.EC PO SCH (09:07)
[2017-01-19] MEDS: Furosemide 20 MG Tab PO SCH (09:08)
[2017-01-19 12:36] VITALS: BP 104/53
--- NOTE | 2017-01-19 13:06 | PCM.DCSUM1 ---
Discharge Summary - Hospital Course Brief History: Ms. Tay is an 81-year-old woman who was admitted through the emergency department with hypoxia and increased shortness of breath secondary to aspiration pneumonia. - Discharge Data Discharge Date: 01/19/17 Discharge Disposition: DC/Tfer to SNF 03 Condition: Poor - Discharge Diagnosis/Problem(s) (1) Aspiration into airway SNOMED Code(s): 476790347 ICD Code: T17.908A - UNSP FB IN RESP TRACT, PART UNSP CAUSING OTH INJURY, INIT Status: Acute Current Visit: Yes (2) Aspiration pneumonia SNOMED Code(s): 634966160 ICD Code: J69.0 - PNEUMONITIS DUE TO INHALATION OF FOOD AND VOMIT Status: Resolved Current Visit: No Qualifiers: Aspiration pneumonia type: unspecified Laterality: bilateral Lung location: unspecified part of lung Qualified Code(s): J69.0 - Pneumonitis due to inhalation of food and vomit (3) Squamous cell carcinoma SNOMED Code(s): 456639238 ICD Code: C80.1 - MALIGNANT (PRIMARY) NEOPLASM, UNSPECIFIED Status: Acute Current Visit: No (4) Chronic kidney disease stage 3 SNOMED Code(s): 955915148 ICD Code: N18.3 - CHRONIC KIDNEY DISEASE, STAGE 3 (MODERATE) Status: Chronic Priority: Medium Current Visit: No (5) CHF, Congestive heart failure SNOMED Code(s): 86688270 ICD Code: I50.9 - HEART FAILURE, UNSPECIFIED Status: Chronic Current Visit: No (6) COLD, Chronic obstructive lung disease SNOMED Code(s): 04648697 ICD Code: J44.9 - CHRONIC OBSTRUCTIVE PULMONARY DISEASE, UNSPECIFIED Status : Chronic Current Visit: No (7) Palliative care encounter SNOMED Code(s): 907614950 ICD Code: Z51.5 - ENCOUNTER FOR PALLIATIVE CARE Status: Acute Current Visit: Yes - Patient Summary/Data Consults: Consultations 01/16/17 14:45 PT Evaluation and Treatment [CONS] Routine Please Evaluate and Treat. PT Reason for Consult: Strengthening This query below is only for informational purposes and is not editable. Hospital Course: Ms. Tay is a 81-year-old woman with a known history of metastatic squamous cell carcinoma. She is status post radiation therapy and chemotherapy earlier this year. Since then she has lost significant strength and weight, recently has had difficulty with falls and aspiration with eating. On the day of admission noted to have significant hypoxia and was brought into the emergency department for further evaluation. Chest x-ray showed evidence of infiltrate consistent with pneumonia, likely secondary to aspiration. White blood cell count was elevated and she was noted to have significant hypoxia. She was admitted to the hospital and given IV antibiotic therapy with meropenem and doxycycline as well as IV fluids for hydration. Nebulizer therapy and supplemental oxygen were used as needed. On the day after admission she reported that she was seriously considering comfort cares only and hospice, the next day she was seen by hospice staff and patient would like to proceed with hospice admission after discharge. By the time of discharge her respiratory status improved significantly although she was continuing to require supplemental oxygen. Antibiotics will be discontinued per patient request and she will be moved to comfort cares only. Activity will be as tolerated and she will resume her usual diet. She will be admitted to hospice after discharge from the hospital. - Patient Instructions Diet: Low Sodium Activity: As Tolerated Other/Special Instructions: Hospice admission after [facility]. - Discharge Plan Prescriptions/Med Rec: Magnesium Oxide 400 mg PO BID #60 tablet Home Medications: Home Meds Levothyroxine Sodium [Synthroid] 75 mcg PO DAILY 02/27/13 [History] Acetaminophen [Tylenol] 650 mg PO Q4H PRN 11/21/13 [History] Aspirin [Low Dose Aspirin EC] 81 mg PO DAILY 11/21/13 [History] Ranitidine HCl [Zantac] 150 mg PO BEDTIME 03/07/14 [History] Morphine Sulfate [Morphine Sulfate ER] 30 mg PO TID 06/17/14 [History] Potassium Chloride 20 meq PO TID 06/17/14 [History] Albuterol [Proventil Neb Soln] 2.5 mg NEB QID 11/24/14 [History] Omeprazole 20 mg PO BEDTIME 11/24/14 [History] Sennosides [Senna] 17.2 mg PO BID 12/03/14 [History] Albuterol/Ipratropium [DuoNeb 3.0-0.5 MG/3 ML] 0.5 - 2.5 ml INH Q4H 05/01/15 [ History] Fluticasone/Salmeterol [Advair 250-50] 1 puff INH BID 05/01/15 [History] Furosemide [Lasix] 20 mg PO DAILY 01/09/16 [History] Isosorbide Mononitrate [Imdur] 60 mg PO DAILY 01/09/16 [History] Carvedilol 6.25 mg PO BID 11/26/16 [History] Fluticasone/Salmeterol [Advair 250-50 Diskus] 1 each IH BID 11/26/16 [History] Melatonin 3 mg PO BEDTIME 11/26/16 [History] Nystatin 1 appful TOP BID PRN 11/26/16 [History] Prochlorperazine Maleate [Compazine] 10 mg PO Q6HR PRN 11/26/16 [History] guaiFENesin/Codeine Phosphate [Guaifenesin AC Cough Syrup] 10 ml PO Q4HR PRN 06/14 [History] oxyCODONE 10 mg PO Q4HR PRN 11/26/16 [History] Magnesium Oxide 400 mg PO BID #60 tablet 01/19/17 [Rx] Forms: ED Department Discharge Referrals: Wayne James MD [Primary Care Provider] - - Patient Data Vitals - Most Recent: Last Vital Signs Temp 97 F 01/19/17 12:33 Pulse 94 01/19/17 12:33 Resp 20 01/19/17 12:33 BP 104/53 L 01/19/17 12:33 Pulse Ox 93 L 01/19/17 12:33 Weight - Most Recent: 153 lb 14.4 oz I&O - Last 24 hours: Intake & Output 01/18/17 01/19/17 01/19/17 22:59 06:59 14:59 Intake Total 1600 810 290 Output Total 450 310 450 Balance 1150 500 -160 Lab Results - Last 24 hrs: Laboratory Results - last 24 hr 01/19/17 01/19/17 Range/Units 05:00 05:00 WBC 12.0 H (4.5-11.0) K/uL RBC 4.20 (3.30-5.50) M/uL Hgb 10.0 L (12.0-15.0) g/dL Hct 32.4 L (36.0-48.0) % MCV 77 L (80-98) fL MCH 24 L (27-31) pg MCHC 31 L (32-36) % Plt Count 302 (150-400) K/uL Neut % (Auto) 87 H (36-66) % Lymph % (Auto) 6 L (24-44) % [place] % (Auto) 7 H (2-6) % Eos % (Auto) 0 L (2-4) % Baso % (Auto) 0 (0-1) % Sodium 137 L (140-148) mmol/L Potassium 4.5 (3.6-5.2) mmol/L Chloride 101 (100-108) mmol/L Carbon Dioxide 34 H (21-32) mmol/L Anion Gap 6.5 (5.0-14.0) mmol/L BUN 22 H (7-18) mg/dL Creatinine 1.0 (0.6-1.0) mg/dL Est Cr Clr Drug Dosing 35.49 mL/min Estimated GFR (MDRD) 53 L (>60) Glucose 105 (74-106) mg/dL Calcium 8.8 (8.5-10.1) mg/dL Magnesium 2.4 D (1.8-2.4) mg/dL Med Orders - Current: Current Medications Acetaminophen (Tylenol) 650 mg PO Q4H PRN PRN Reason: Pain (Mild 1-3)/fever Last Admin: 01/18/17 03:35 Dose: 650 mg Albuterol (Proventil Neb Soln) 2.5 mg NEB Q4H PRN PRN Reason: Shortness Of Breath/wheezing Last Admin: 01/17/17 05:20 Dose: 2.5 mg Albuterol/Ipratropium (Duoneb 3.0-0.5 Mg/3 Ml) 3 ml NEB QIDRT [facility] Last Admin: 01/19/17 11:00 Dose: 3 ml Aspirin (Halfprin) 81 mg PO DAILY [facility] Last Admin: 01/19/17 09:07 Dose: 81 mg Carvedilol (Coreg) 6.25 mg PO BID [facility] Last Admin: 01/19/17 09:07 Dose: 6.25 mg Docusate Sodium (Colace) 100 mg PO BID PRN PRN Reason: Constipation Enoxaparin Sodium (Lovenox) 40 mg SUBCUT Q24H [facility] Last Admin: 01/18/17 15:04 Dose: 40 mg Furosemide (Lasix) 20 mg PO DAILY [facility] Last Admin: 01/19/17 09:08 Dose: 20 mg Doxycycline Hyclate 100 mg/ (Sodium Chloride) 100 mls @ 100 mls/hr IV Q12H [facility] Last Admin: 01/19/17 05:00 Dose: 100 mls/hr Meropenem 500 mg/ Sodium (Chloride) 50 mls @ 100 mls/hr IV Q8H [facility] Last Admin: 01/19/17 11:13 Dose: Not Given Isosorbide Mononitrate (Imdur) 60 mg PO DAILY [facility] Last Admin: 01/19/17 09:07 Dose: 60 mg Levothyroxine Sodium (Levothyroxine) 75 mcg PO DAILY@0730 [facility] Last Admin: 01/19/17 07:30 Dose: 75 mcg Magnesium Hydroxide (Milk Of Magnesia) 30 ml PO Q12H PRN PRN Reason: Constipation Magnesium Oxide (Magnesium Oxide) 400 mg PO BID [facility] Last Admin: 01/19/17 09:07 Dose: 400 mg Mometasone Furoate/Formoterol Fumar (Dulera 200-5 Mcg) 1 puff IH BIDRT [facility] Last Admin: 01/19/17 07:00 Dose: 1 puff Morphine Sulfate (Ms Contin) 30 mg PO Q8H [facility] Last Admin: 01/19/17 06:00 Dose: 30 mg Ondansetron HCl (Zofran) 4 mg IV Q4H PRN PRN Reason: Nausea/Vomiting Oxycodone HCl (Oxycodone) 10 mg PO Q4H PRN PRN Reason: Pain Last Admin: 01/18/17 19:25 Dose: 10 mg Pantoprazole Sodium (Protonix) 40 mg PO BEDTIME [facility] Last Admin: 01/18/17 21:31 Dose: 40 mg Polyethylene Glycol (Miralax) 17 gm PO DAILY PRN PRN Reason: Constipation Potassium Chloride (Klor-Con M20) 20 meq PO TIDMEALS [facility] Last Admin: 01/19/17 08:00 Dose: 20 meq Senna (Senna) 17.2 mg PO BID [facility] Last Admin: 01/19/17 09:05 Dose: 17.2 mg Sodium Chloride (Saline Flush) 10 ml FLUSH ASDIRECTED PRN PRN Reason: Keep Vein Open Discontinued Medications Albuterol (Proventil Neb Soln) 2.5 mg NEB ONETIME ONE Stop: 01/16/17 12:19 Last Admin: 01/16/17 12:37 Dose: 2.5 mg Furosemide (Lasix) 60 mg IVPUSH ONETIME ONE Stop: 01/16/17 13:10 Last Admin: 01/16/17 13:26 Dose: 60 mg Sodium Chloride (Normal Saline) 1,000 mls @ 100 mls/hr IV ASDIRECTED [facility] Last Admin: 01/16/17 13:28 Dose: 100 mls/hr Sodium Chloride (Normal Saline) 1,000 mls @ 125 mls/hr IV ASDIRECTED [facility] Last Admin: 01/17/17 10:07 Dose: 125 mls/hr Meropenem 1 gm/ Sodium (Chloride) 100 mls @ 200 mls/hr IV Q8H [facility] Last Admin: 01/16/17 18:25 Dose: Not Given Magnesium Sulfate 2 gm/ Premix 50 mls @ 25 mls/hr IV Q6H [facility] Stop: 01/19/17 05:59 Last Admin: 01/19/17 04:00 Dose: 25 mls/hr Methylprednisolone Sodium Succinate (Solu-Medrol) 40 mg IVPUSH Q6H [facility] Last Admin: 01/17/17 10:08 Dose: 40 mg Methylprednisolone Sodium Succinate (Solu-Medrol) 40 mg IVPUSH Q12H [facility] Last Admin: 01/18/17 09:49 Dose: 40 mg Morphine Sulfate (Ms Contin) 30 mg PO TID [facility] Last Admin: 01/17/17 08:41 Dose: 30 mg Potassium Chloride (Klor-Con M20) 40 meq PO ONETIME ONE Stop: 01/17/17 10:31 Last Admin: 01/17/17 11:27 Dose: 40 meq Potassium Chloride (Klor-Con M20) 40 meq PO ONETIME ONE Stop: 01/17/17 16:01 Last Admin: 01/17/17 16:12 Dose: 40 meq *Q Meaningful Use (DIS) - VTE *Q VTE Criteria *Q: - Stroke *Q Stroke Criteria *Q: - AMI *Q AMI Criteria *Q:
[2017-01-19] MEDS: Enoxaparin 40 MG/0.4 ML Syringe SUBCUT SCH (16:33)
== END 2017-01-19 19:05 | DRG 177 ==
LOC: JP.ED 12:13 → JP.ICU 14:12 → JP.2SS 01-18 13:34
PROVIDERS: ADMIT Hospitalist; ATTEND Hospitalist
DX: J69.0 Pneumonitis due to inhalation of food and vomit (principal); E87.70 Fluid overload, unspecified; J96.01 Acute respiratory failure with hypoxia; J44.1 Chronic obstructive pulmonary disease with (acute) exacerbation; Z51.5 Encounter for palliative care; Z66 Do not resuscitate; I25.10 Atherosclerotic heart disease of native coronary artery without angina pectoris; N18.3 Chronic kidney disease, stage 3 (moderate); I50.9 Heart failure, unspecified; Z87.891 Personal history of nicotine dependence; Z85.89 Personal history of malignant neoplasm of other organs and systems; Z95.1 Presence of aortocoronary bypass graft; Z79.82 Long term (current) use of aspirin; Z79.899 Other long term (current) drug therapy; Z79.51 Long term (current) use of inhaled steroids; R06.02 Shortness of breath; E03.9 Hypothyroidism, unspecified
CPT/HCPCS: 36415; 51702; 71010 ×2; 80053; 82550; 82803; 83605; 83880; 84443; 84484; 85025; 87040 ×2; 87070; 87077 ×2; 87186; 87205; 94640; 94660; 96361; 96375; 99285 ×2; J1940; J7040; 80048; 81001; 83735; 96365; 96367; A9270-GY; J1650; J2185; J2920; J3475; J7030; J7050; J7620